=== PATIENT | male | born 1955 | race Caucasian/White ===

== ENCOUNTER 2017-06-20 06:52 | Day surgery (SDC) | payer BC, OTHER ==
[2017-06-20] MEDS: NS 1,000 ML IV (07:00)
[2017-06-20] MEDS ORDERED: PROPOFOL 200 MG/20 ML VIAL As Ordered ×3 (07:38→07:40)
== END 2017-06-20 08:10 | disposition home or self-care (01) ==
LOC: M OPP 06:52
DX: Z12.11 Encounter for screening for malignant neoplasm of colon (principal); Z86.010 Personal history of colon polyps; D12.5 Benign neoplasm of sigmoid colon; D12.3 Benign neoplasm of transverse colon; R06.83 Snoring; M54.9 Dorsalgia, unspecified
CPT/HCPCS: 45385

== ENCOUNTER 2018-06-10 08:27 | Day surgery (SDC) | payer BC, OTHER ==
[~2018-06-10] VITALS: Ht 188 cm; Wt 106.6 kg
[~2018-06-10 08:27] MED LIST: LR 1,000 ML IV ONE; [UNRECOGNIZED DRUG - REMARK]; ceFAZolin SOD 1 GM in D5W MINI-BAG PLUS 50 ML IV ONE
[2018-06-10 09:04] LABS: HEMATOCRIT 47.4 % (42.0-52.0); HEMOGLOBIN 16.1 g/dl (13.5-17.5); MEAN CORPUSCULAR HEMOGLOBIN 29.8 pg (27.0-33.0); MEAN CORPUSCULAR VOLUME 87.8 fl (80.0-96.0); PLATELET COUNT, AUTOMATED 242 10^3/uL (150-450); WHITE BLOOD COUNT 4.5 10^3/uL (4.0-10.0)
[2018-06-10] MEDS ORDERED: MIDAZOLAM INJ 2 MG/2 ML VIAL (J2250) As Ordered ONE (09:06)
[2018-06-10] MEDS ORDERED: ONDANSETRON 4MG/2ML VIAL (J2405) As Ordered ONE (09:07)
[2018-06-10] MEDS ORDERED: PROPOFOL 200 MG/20 ML VIAL As Ordered ONE ×2 (09:07→11:10)
[2018-06-10] MEDS ORDERED: fentaNYL 100 MCG/2 ML INJECTION (J3010) As Ordered ONE ×2 (09:07→10:37)
[2018-06-10] MEDS ORDERED: dexameTHASONE 4 MG/ML 1ML VIAL (J1100) As Ordered ONE (09:07)
[2018-06-10] MEDS ORDERED: LIDOCAINE 2% INJ 100 MG/5 ML SDV (FOR ANES.) As Ordered ONE (09:07)
[2018-06-10] MEDS ORDERED: ROCURONIUM BROMIDE 50 MG/5 ML VIAL As Ordered ONE (09:07)
[2018-06-10] MEDS ORDERED: BUPIVACAINE/EPIN 0.25% 30 ML VIAL As Ordered ONE (09:22)
[2018-06-10 09:23] LABS: BLOOD UREA NITROGEN 21 MG/DL (7-18); CALCIUM LEVEL 8.6 MG/DL (8.8-10.2); CARBON DIOXIDE LEVEL 24 MEQ/L (21-32); CHLORIDE LEVEL 109 MEQ/L (98-107); CREATININE FOR GFR 0.92 MG/DL (0.70-1.30); GLOMERULAR FILTRATION RATE > 60.0 (>49); GLUCOSE, FASTING 100 MG/DL (70-100); POTASSIUM SERUM 4.1 MEQ/L (3.5-5.1); SODIUM LEVEL 140 MEQ/L (136-145)
[2018-06-10] MEDS ORDERED: KETOROLAC 60 MG/2 ML VIAL (J1885) As Ordered ONE (10:47)
[2018-06-10] MEDS ORDERED: ONDANSETRON 4MG/2ML VIAL (J2405) IV PRN ×2 (12:00→12:15)
[2018-06-10] MEDS ORDERED: MEPERIDINE INJ 25 MG/ML VIAL (J2175) IV PRN (12:00)
[2018-06-10] MEDS ORDERED: NORCO, ANEXSIA 5/325MG TABLET (HYDROcodone/ACETAMINOPHEN) PO PRN (12:00)
[2018-06-10] MEDS ORDERED: METOCLOPRAMIDE INJ 10MG/2ML VIAL (J2765) IV PRN (12:00)
[2018-06-10] MEDS ORDERED: PERCOCET 5MG/325MG TAB PO PRN (12:00)
[2018-06-10] MEDS ORDERED: LR 1,000 ML IV SCH ×2 (12:00)
[2018-06-10] MEDS ORDERED: fentaNYL 100 MCG/2 ML INJECTION (J3010) IV PRN (12:00)
[2018-06-10] MEDS ORDERED: MORPHINE 4 MG/ML 1ML VIAL/SYRINGE (J2270) IV PRN (12:15)
--- NOTE | 2018-06-10 12:35 | RO ---
DATE OF PROCEDURE: 06/10/2018 PREOPERATIVE DIAGNOSIS: Recurrent left inguinal hernia. POSTOPERATIVE DIAGNOSES: Recurrent left inguinal hernia (lipoma of the cord). PROCEDURE: Left inguinal hernia repair with ULTRAPRO mesh. SURGEON: Manjit Bailey MD SANITARY CHEMIST: ANESTHESIA: General endotracheal anesthesia. ESTIMATED BLOOD LOSS (EBL): Was minimal. FLUIDS: Crystalloid. DESCRIPTION OF PROCEDURE: Brief procedure summary: The patient was brought to the operating room was given general anesthesia. After adequate anesthesia and preoperative antibiotics were given, the patient was prepped and draped in the usual sterile fashion. Then, a left inguinal incision was made with skin knife. Blunt dissection was carried down to fascia, external oblique fascia. Fascia was opened along its length, and the ilioinguinal nerve was seen and preserved and left with the cord structures during the dissection. In any case, a Meek drain was placed around the cord structures, and then using this to mobilize further the tissue and the floor of the canal was established to be intact, and where the defect was, was at the internal ring. However, there was lipoma of the cord, and I did not appreciate any evidence of peritoneum in this area. There were two lipomas of the cord, relatively good size, that were removed from this inguinal canal, transected at the base. Next, given the relatively patulous opening in this area, I used some #2-0 Vicryl to imbricate the transversalis fascia in this area and the floor of the canal to close the internal ring. Next, ULTRAPRO mesh was cut to the appropriate size, sutured in with PDS at the lateral border of pubis along the inguinal ligament on the left hand side, lateral side with #2-0 PDS, and Securestrap on the medial side. The tails of the mesh were brought together with #2-0 Vicryl, and after this provided adequate sizing of the internal ring. The external oblique was closed over the top of the mesh, and #2-0 Vicryl was used close Marcus layer, #3-0 Vicryl was used to approximate the dermis, #4-0 Vicryl was used to approximate the skin. Steri-Strips and dry sterile dressing was applied. Patient was awakened from his anesthesia, extubated, brought to recovery room awake, alert, and hemodynamically stable. Sponge and needle counts correct times two.
[2018-06-10 14:10] VITALS: BP 127/81
== END 2018-06-10 14:20 | disposition home or self-care (01) ==
LOC: M SDC 08:27
PROVIDERS: ATTEND Surgery
DX: K40.91 Unilateral inguinal hernia, without obstruction or gangrene, recurrent (principal); R06.83 Snoring; Z86.010 Personal history of colon polyps
CPT/HCPCS: 36415; 49520; 80048; 85027; 88302; C1781; J0690; J1100; J1885; J2250; J2405; J3010

== ENCOUNTER 2018-09-21 22:29 | Emergency (ER) | payer BC, OTHER ==
[~2018-09-21] VITALS: Ht 188 cm; Wt 106.8 kg
[~2018-09-21 22:29] MED LIST changes: -LR 1,000 ML IV ONE; -ceFAZolin SOD 1 GM in D5W MINI-BAG PLUS 50 ML IV ONE
[2018-09-21 23:13] LABS: EOS # 0.1 10^3/uL (0.0-0.50); EOS % 3.4 % (0.0-3.0); HEMOGLOBIN 14.9 g/dl (13.5-17.5); LYMPH # 1.5 10^3/uL (1.5-4.5); LYMPH % 37.7 % (24.0-44.0); MEAN CORPUSCULAR HEMOGLOBIN 30.8 pg (27.0-33.0); MEAN CORPUSCULAR HGB CONC 34.7 g/dl (32.0-36.5); MEAN CORPUSCULAR VOLUME 88.8 fl (80.0-96.0); MONO # 0.5 10^3/uL (0.0-0.8); MONO % 11.5 % (0.0-5.0); NEUTROPHILS # 1.9 10^3/uL (1.8-7.7); NEUTROPHILS % 46.2 % (36.0-66.0); PLATELET COUNT, AUTOMATED 195 10^3/uL (150-450); RED BLOOD COUNT 4.84 10^6/uL (4.30-6.10); WHITE BLOOD COUNT 4.1 10^3/uL (4.0-10.0)
[2018-09-21 23:15] VITALS: BP 150/80
[2018-09-21] MEDS ORDERED: NITROGLYCERIN 2% OINT 1 GM *U/D* PKT TOP ONE (23:15)
[2018-09-21] MEDS ORDERED: ASPIRIN 325 MG TAB PO ONE (23:15)
[2018-09-21 23:23] LABS: INR 0.9; PROTHROMBIN TIME 12.2 SECONDS (12.1-14.4)
[2018-09-21 23:24] LABS: PARTIAL THROMBOPLASTIN TIME 27.7 SECONDS (25.4-37.6)
[2018-09-21 23:37] LABS: BLOOD UREA NITROGEN 16 MG/DL (7-18); CALCIUM LEVEL 8.7 MG/DL (8.8-10.2); CARBON DIOXIDE LEVEL 25 MEQ/L (21-32); CHLORIDE LEVEL 110 MEQ/L (98-107); CK-MB VALUE MASS 3.7 NG/ML (<3.6); CPK CREATINE PHOSPHOKINASE 301 U/L (39-308); CREATININE FOR GFR 0.98 MG/DL (0.70-1.30); GLOMERULAR FILTRATION RATE > 60.0 (>49); GLUCOSE, FASTING 149 MG/DL (70-100); MB/CK RELATIVE INDEX 1.23 (< OR =4); POTASSIUM SERUM 3.8 MEQ/L (3.5-5.1); SODIUM LEVEL 143 MEQ/L (136-145); TROPONIN I < 0.02 NG/ML (< 0.10)
[2018-09-22] MEDS ORDERED: KETOROLAC 30 MG/ML VIAL (J1885) IV ONE (00:15)
[2018-09-22 02:41] LABS: CK-MB VALUE MASS 3.4 NG/ML (<3.6); CPK CREATINE PHOSPHOKINASE 249 U/L (39-308); MB/CK RELATIVE INDEX 1.37 (< OR =4); TROPONIN I < 0.02 NG/ML (< 0.10)
[2018-09-22] MEDS ORDERED: ISOVUE-370 76% 100ML VIAL (Q9967) As Ordered ONE (02:54)
[2018-09-22] MEDS ORDERED: NS 500 ML IV ONE (03:00)
--- NOTE | 2018-09-22 04:16 | REPVR ---
EXAM: CT Angiography Chest With Contrast EXAM DATE/TIME: 09/22/2018 3:00 AM CLINICAL HISTORY: 62 years old, male; Chest pain; Type not specified; Additional info: Cp TECHNIQUE: Imaging protocol: Axial computed tomographic angiography images of the chest with intravenous contrast using CT angiography protocol. Coronal and sagittal reformatted images were created and reviewed. 3D rendering: MIP reconstructed images were created and reviewed. Radiation optimization: All CT scans at this facility use at least one of these dose optimization techniques: automated exposure control; mA and/or kV adjustment per patient size (includes targeted exams where dose is matched to clinical indication); or iterative reconstruction. Contrast material: ISOVUE 370; Contrast volume: 75 ml; Contrast route: IV; COMPARISON: CR Chest, 1 view 09/21/2018 11:14 PM FINDINGS: Pulmonary arteries: The main pulmonary artery measures 35 mm. No pulmonary embolism is identified. Aorta: The ascending thoracic aorta measures 38 mm. Other arteries: The left vertebral artery originates directly from the arch. Lungs: Mild right lower lobe fibro-atelectatic change adjacent to the elevated hemidiaphragm. There is minimal left lower lobe fibro-atelectatic change. Pleural space: Unremarkable. No pneumothorax. No pleural effusion. Heart: Unremarkable. No cardiomegaly. No pericardial effusion. Diaphragm: Elevation of the right hemidiaphragm. Gallbladder and bile ducts: Faint gallstones in the gallbladder which is somewhat contracted. Lymph nodes: Unremarkable. No enlarged lymph nodes. Bones/joints: Unremarkable. No acute fracture. Soft tissues: Unremarkable. IMPRESSION: 1. Elevation of the right hemidiaphragm with mild fibro-atelectatic change in the adjacent right lower lobe. There is minimal fibro-atelectatic change in the left lower lobe. 2. Faint gallstones in the gallbladder. 3. Otherwise negative CTA chest. No pulmonary embolism is identified. Electronically signed by: Raúl Kaiser On 09/22/2018 04:15:45 AM
[2018-09-22] MEDS ORDERED: KETO10TAB PO (04:45)
[2018-09-22 04:51] VITALS: BP 120/75
--- NOTE | 2018-09-22 07:11 | ECGEPIP ---
[facility] - ED Test Date: 2018-09-21 Pat Name: JOHNNY CUETO Department: Room: - Gender: Male Respiratory Care Practitioner: VIKKI : 1955 Requested By: TERRY JOSHI Order Number: [id number] Reading MD: Sy Cordero Measurements Intervals [place] Rate: 76 P: 46 [place]: 163 QRS: QRSD: 108 T: 13 QT: 405 QTc: 457 Interpretive Statements SINUS RHYTHM PROBABLE LATERAL MYOCARDIAL INFARCTION, PROBABLY OLD NO PRIORS FOR COMPARISON Electronically Signed on 09-22-2018 7:11:03 EDT by Sy Cordero
--- NOTE | 2018-09-22 07:13 | ECGEPIP ---
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
--- NOTE | 2018-09-22 08:36 | REP ---
CHEST, SINGLE VIEW: Single view of the chest is performed. There is moderate elevation of the right hemidiaphragm with mild right basilar atelectatic change. No acute infiltrate is seen. Heart is not enlarged. Mediastinal silhouette is unremarkable. IMPRESSION: Moderate elevation of the right hemidiaphragm with mild right base atelectatic change. No acute infiltrate. Electronically Signed by Shaan Blas MD 09/23/2018 10:03 A
== END 2018-09-22 05:11 | disposition home or self-care (01) ==
LOC: M ED 22:29
DX: R07.89 Other chest pain (principal); K80.20 Calculus of gallbladder without cholecystitis without obstruction
CPT/HCPCS: 36415; 71045; 71275; 80048; 82550; 82553; 84484; 85025; 85610; 85730; 93005; 93041; 94760; 96361; 96374; 99285; J1885; Q9967

== ENCOUNTER → 2018-11-11 | Outpatient (CLI) | payer BC, OTHER ==
[~2018-11-11] MED LIST changes: +KETO10TAB PO
--- NOTE | 2018-11-11 15:10 | REP ---
Clinical: Hydrocele. Technique: Real time pearce scale and color Doppler evaluation using linear high frequency transducer. Comparison: None. Findings: Right testicle measures 4.5 x 2.3 x 2.7 cm and appears normal. Moderate complex right hydrocele likely chronic. Right-sided varicoceles are identified measuring up to approximately 3 mm diameter. Right epididymal cyst is also appreciated measuring 7.7 x 7.1 x 8.7 mm. Left testicle measures 4.3 x 2.4 x 2.8 cm and appears normal moderate complex left hydrocele likely chronic. No significant left-sided varicoceles are appreciated. Left epididymis appears relatively normal. There is a large echogenic mass identified posterolateral to the left florentin scrotum which measures approximately 9.2 x 3.7 x 6.1 cm and is most consistent with herniating fat. Impression: 1. Normal appearance and vascularity to the bilateral testicles. 2. Somewhat complex chronic-appearing moderate bilateral hydroceles noted along with a 0.7 mm right epididymal cyst and multiple right-sided varicoceles up to 3 mm. 3. Large focus of herniating fat extends into the posterolateral aspect of the left hemiscrotum. Electronically Signed by Ken Landaverde MD 11/11/2018 03:01 P
== END ==
LOC: M RAD 13:08
PROVIDERS: ATTEND Surgery
DX: N43.3 Hydrocele, unspecified (principal)

== ENCOUNTER → 2018-12-23 | Outpatient (REF) | payer BC, OTHER | LOC: M LAB REF 12:48 | PROVIDERS: ATTEND Physician Assistant | DX: J02.9 Acute pharyngitis, unspecified (principal) ==

== ENCOUNTER → 2020-06-02 | Outpatient (CLI) | payer MEDICARE, OTHER, BC ==
[~2020-06-02] MED LIST changes: +BAYE81TA10 PO; +SILD100T PO
== END ==
LOC: M LABSMTC 11:18
PROVIDERS: ATTEND Anesthesiology
DX: Z01.812 Encounter for preprocedural laboratory examination (principal); Z20.822 Contact with and (suspected) exposure to COVID-19

== ENCOUNTER → 2020-06-02 | Outpatient (CLI) | payer MEDICARE, BC, OTHER ==
--- NOTE | 2020-06-02 16:06 | ECGEPIP ---
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
== END ==
LOC: M EKG 09:41
PROVIDERS: ATTEND Anesthesiology
DX: Z01.818 Encounter for other preprocedural examination (principal); K63.5 Polyp of colon

== ENCOUNTER 2020-06-07 07:29 | Day surgery (SDC) | payer MEDICARE, BC, OTHER ==
[~2020-06-07] VITALS: Ht 188 cm; Wt 99.8 kg
[~2020-06-07 07:29] MED LIST changes: +LR 1,000 ML IV ONE; +ceFAZolin SOD 1 GM in D5W MINI-BAG PLUS 50 ML IV ONE
--- OUTSIDE RECORDS SUMMARY | 2020-06-07 07:32 | CCD | Continuity of Care Document ---
Author Author Chi BAILEY MD Organization Unknown Address [address] [address] Phone [phone] Care Team Providers Care Underwriting Consultant Name Role Phone AUTM Unavailable Problems Active Problems Provider Date Screening for malignant neoplasm of colon Karlos Andre MD Onset: 06/20/2017 Benign neoplasm of colon Karlos Andre MD Onset: 06/21/19 18 History of polyp of colon Karlos Andre MD Onset: 018 Social History Type Date Description Comments Sex Unknown ETOH Use 2-3 A Week Tobacco Use Start: Unknown Patient has never smoked Recreational Drug Use Denies Drug Use Allergies, Adverse Reactions, Alerts Description No Known Drug Allergies Medications Active Medications SIG Qnty Indications Ordering Provide r Date Aspirin [address] take 1 tab by mouth daily Unknown Immunizations Description No Information Available Vital Signs Date Vital Result Comment 04/06/2020 11:19am BP Systolic 131 mmHg BP Diastolic 78 mmHg Heart Rate 64 /min Height 74 inches 6'2" Weight 228.50 lb BMI (Body Mass Index) 29.3 kg/m2 [place] Body Weight 190 lb Weight 103.648 kg BSA (Body Surface Area) 2.30 m2 02/16/2019 8:48am BP Systolic 118 mmHg BP Diastolic 74 mmHg Heart Rate 76 /min Height 74 inches 6'2" Weight 238.00 lb BMI (Body Mass Index) 30.6 kg/m2 [place] Body Weight 190 lb Weight 107.957 kg BSA (Body Surface Area) 2.34 m2 Results Description No Information Available Procedures Description No Information Available Medical Devices Description No Information Available Encounters Description No Information Available Assessments Description No Information Available Plan of Treatment 02/16/2019 - Manjit Bailey JR, MD* N43.3 Hydrocele, unspecified* Comments:* At this point we have discussed multiple options with him at exploration aspirat ion here in the office or obtaining a second opinion and I do feel that having the urologist take a look at him and make some recommendations concerning additional treatment may be very reasonable if they would like to proceed with a needle aspirate of this to see if this makes at least some temporary relief and provide at least a diagnostic impression of whether this is going to make a difference for him it may be the next step and the patient understands and will discuss this further with the urologist however each time I discuss the issue and discomfort the patient has he is extremely vague at describing it and states that it doesn't bother him except at night when he turns over and otherwise has no other specific complaints and for a recurrent inguinal hernia I think his expectations may be a little bit higher concerning resolution of discomfort/normalization. I would not be surprised whatsoever if this is related to the mesh attached to the external oblique muscles and when he turns in bed possibly pulls on the mesh and causes some mild discomfort in this area. Once again it's hard to determine with him just because it's somewhat vague his description of this abnormality. In any case I would like the urologist to see him and make some recommendations possibly do a diagnostic aspiration or if need be to explore this scrotum on that side Functional Status Description No Information Available Mental Status Description No Information Available Referrals Description No Information Available
--- OUTSIDE RECORDS SUMMARY | 2020-06-07 07:32 | CCD | Continuity of Care Document ---
Author Author Chi CLAUDIO M.D. Organization Unknown Address [address] [facility], [address] [place] [address] Phone [phone] Care Team Providers Care Relationship Specialist Name Role Phone AUTM Unavailable Problems Active [...] Available Vital Signs Date Vital Result Comment 04/20/2020 9:58am BP Systolic 116 mmHg BP Diastolic 78 mmHg Height 74 inches 6'2" Weight 228.12 lb BMI (Body Mass Index) 29.3 kg/m2 [place] Body Weight 190 lb Weight 103.478 kg BSA (Body Surface Area) 2.30 m2 04/06/2020 11:19am BP Systolic 131 mmHg BP Diastolic 78 mmHg Heart Rate 64 /min Height 74 inches 6'2" Weight 228.50 lb BMI (Body Mass Index) 29.3 kg/m2 [place] Body Weight 190 lb Weight 103.648 kg BSA (Body Surface Area) 2.30 m2 Results Description No Information Available Procedures [...]
--- OUTSIDE RECORDS SUMMARY | 2020-06-07 07:32 | CCD | Continuity of Care Document ---
Author Author Chi KAISER M.D. Organization Unknown Address [address] [address] Phone [phone] Care Team Providers Care Spooling Operator Name Role Phone Jose Valentine Guerline AUTM [phone] Problems Active Problems Provider Date Mixed hyperlipidemia Mc Kaiser M.D. Onset: 01/29/20 13 Benign neoplasm of colon Mc Kaiser M.D. Onset: 01/13 Social History Type Date Description Comments Sex Unknown ETOH Use Consumes 1-2 beers per week Tobacco Use Start: Unknown Patient has never smoked Recreational Drug Use Denies Drug Use Allergies, Adverse Reactions, Alerts Active Allergies Reaction Severity Comments Date No Known Drug Allergy 2012 Medications Active Medications SIG Qnty Indications Ordering Provide r Date Viagra 100mg Tablets 1 by mouth every day as needed 6tabs Mc Kaiser M.D. 03/25/20 20 Shingrix 50mcg/0.5ML Suspension Re c as directed 1units Mc Kaiser M.D. 09/21/19 20 Prevnar 13 Suspension as directed 1dose Mc Kaiser M.D. 09/21/[address] 1 by mouth every day OTC Unknown Immunizations CPT Code Status Date Vaccine Lot # 12981 Given 03/20/2019 Influenza Virus Vaccine, Quadrivalent, Slit Virus, Im Use 3Y & Up [id number] 46140 Given 03/19/2018 Influenza Virus Vaccine, Quadrivalent, Slit Virus, Im Use 3Y & Up [id number] 47218 Given 03/18/2017 Influenza Virus Vaccine, Quadrivalent, Slit Virus, Im Use 3Y & Up [id number] Vital Signs Date Vital Result Comment 03/25/2020 9:37am BP Systolic 116 mmHg BP Diastolic 74 mmHg Body Temperature 97.4 F Heart Rate 60 /min Respiratory Rate 12 /min Height 73 inches 6'1" Weight 227.00 lb [place] Body Weight 184 lb BMI (Body Mass Index) 29.9 kg/m2 O2 % BldC Oximetry 95 % 09/21/2019 8:55am BP Systolic 124 mmHg BP Diastolic 78 mmHg Body Temperature 97.4 F Heart Rate 62 /min Respiratory Rate 14 /min Height 73 inches 6'1" Weight 221.00 lb [place] Body Weight 184 lb BMI (Body Mass Index) 29.2 kg/m2 O2 % BldC Oximetry 95 % Results Description No Information Available Procedures Description No Information Available Medical Devices Description No Information Available Encounters Type Date Location Provider Dx Diagnosis Office Visit 03/25/2020 9:30a [place] [facility] Mc Kaiser M. D. Z00.00 Encntr for general adult medical exam w/o abnormal findings R73.01 Impaired fasting glucose E78.2 Mixed hyperlipidemia Assessments Date Code Description Provider 03/25/2020 Z00.00 Encounter for general adult medi juli examination without abno Mc Kaiser M.D. 03/25/2020 R73.01 Impaired fasting glucose Mc Mata M.D. 03/25/2020 E78.2 Mixed hyperlipidemia Frances Kaiser M.D. Plan of Treatment No Information Available Functional Status Description No Information Available Mental Status Description No Information Available Referrals Refer to Dr Reason for Referral Status Appt Date Manjit Bailey M.D. recurrence of fluid collecti on at hernia repair site- bothersome to pt. -eval and rx Created [address] [place] [address], [address] [place] [address] [phone]
--- OUTSIDE RECORDS SUMMARY | 2020-06-07 07:32 | CCD | Continuity of Care Document ---
Author Author Chi KAISER M.D. Organization Unknown Address [address] [address] Phone [phone] Care Team Providers Care Pyridine Operator Name Role Phone Jose Valentine Guerline AUTM [phone] Problems Active Problems Provider Date Mixed hyperlipidemia [...] CPT Code Status Date Vaccine Lot # [id number] Given 03/25/2020 Pneumococcal Immunization T0 [id number] 05126 Given 03/20/2019 Influenza Virus Vaccine, Quadrivalent, Slit Virus, Im Use 3Y & Up [id number] 17558 Given 03/19/2018 Influenza Virus Vaccine, Quadrivalent, Slit Virus, Im Use 3Y & Up [id number] 41179 Given 03/18/2017 Influenza Virus Vaccine, Quadrivalent, Slit Virus, Im Use 3Y & Up [id number] Vital Signs Date Vital Result Comment 03/25/2020 9:37am BP Systolic 116 mmHg BP Diastolic 74 mmHg Body Temperature 97.4 F Heart Rate 60 /min Respiratory Rate 12 /min Height 73 inches 6'1" Weight 227.00 lb [place] Body Weight 184 lb BMI (Body Mass Index) 29.9 kg/m2 O2 % BldC Oximetry 95 % 09/21/2019 8:55am BP Systolic 124 mmHg BP Diastolic 78 mmHg Body Temperature 97.4 F Heart Rate 62 /min Respiratory Rate 14 /min Height 73 inches 6'1" Weight 221.00 lb [place] Body Weight 184 lb BMI (Body Mass Index) 29.2 kg/m2 O2 % BldC Oximetry 95 % Results Test Acquired Date Facility Test Result H/L Range Note CMP 03/25/2020 [facility] Glu 105 mg/dL 70 - 110 1 BUN 17 mg/dL 8 - 23 Creat 0.9 mg/dL 0.7 - 1.2 BUN/Creatinine Ratio 18.6 CALC Na 139 mmol/L 136 - 145 K 4.4 mmol/L 3.5 - 5.1 CL 104.3 mmol/L 98.0 - 107.0 Co2 22.0 mmol/L 22.0 - 29.0 CA 9.2 mg/dL 8.6 - 10.2 TP 6.4 g/dL Low 6.6 - 8.7 Alb 4.5 g/dL 3.5 - 5.2 A/G Ratio 2.3 CALC Globulin 1.9 CALC Alp 54.3 U/L 40 - 129 Alt (SGPT) 26 U/L 0 - 41 Ast (Sgot) 20 U/L 0 - 40 Tbili 0.52 mg/dL 0.0 - 1.2 Osmolality-Calculated 279.6 CALC Anion Gap 17 mmol/L eGFR 104 # Calc 2 eGFR Non-Afr. [place] 89 # Calc 3 Lipid Panel 03/25/2020 [facility] Chol 206 mg/dL High 0 - 200 Trig 100 mg/dL 35 - 200 HDL 45 mg/dL 35 - 55 LDL_C 141 Calc High 75 - 129 Cho/HDL Ratio 4.5 Calc 1 CHRONIC KIDNEY DISEASE STAGI NG PER NKF: MALE GFR INTERPRETATION: 20-49 YRS: >60 mL/min Normal 50-59 YRS: >56 mL/min Normal 60-69 YRS: >49 mL/min Normal 70-79 YRS: >42 mL/min Normal 80 and above >35 mL/min Normal FEMALE GRF INTERPRETATION: 20-39 YRS: >60 mL/min Normal 40-49 YRS: >58 mL/min Normal 50-59 YRS: >51 mL/min Normal 60-69 YRS: >45 mL/min Normal 70-79 YRS: >39 mL/min Normal 80 and above >32 mL/min NormalCLASSIFICATION CHOLESTEROL FOR ADULTS CHILDREN/ADOLESCENTS* DESIRABLE: <200 MG/DL <170 MG/DL BORDER-LINE HIGH RISK: 200-239 MG/DL 170-199 MG/DL HIGH RISK: >240 MG/DL >200 MG/DL CLASS. FOR PRIMARY LDL CHOL PREVENTION: LDL CHOL-CHILD/ADOLESCENTS* DESIRABLE: <130 MG/DL <110 MG/DL BORDERLINE-HIGH RISK: 130-159 MG/DL 110-129 MG/DL HIGH RISK: >160 MG/DL >130 MG/DL *CHILDREN AND ADOLESCENTS REPRESENTS INDIVIDUALA AGED 2-19 YEARS EXCLUSIVE. 2 CKD-EPI 3 CKD-EPI Procedures Description No Information Available Medical Devices Description No Information Available Encounters Type Date Location Provider Dx Diagnosis Office Visit 03/25/2020 9:30a [place] [facility] Mc Kaiser M. D. Z00.00 Encntr [...] Description No Information Available Referrals Refer to Reason for Referral Status Appt Date Manjit Bailey M.D. recurrence of fluid collecti on at hernia repair site- bothersome to pt. -eval and rx Created [address] [facility], [address] [place] [address] [phone]
--- OUTSIDE RECORDS SUMMARY | 2020-06-07 07:32 | CCD | Continuity of Care Document ---
Author Author Chi BAILEY MD Organization Unknown Address [address] [address] Phone [phone] Care Team Providers Care Rating Clerk Name Role Phone AUTM Unavailable Problems Active [...] Available Vital Signs Date Vital Result Comment 05/04/2020 10:05am BP Systolic 117 mmHg BP Diastolic 71 mmHg Heart Rate 65 /min Height 74 inches 6'2" Weight 228.00 lb BMI (Body Mass Index) 29.3 kg/m2 [place] Body Weight 190 lb Weight 103.421 kg BSA (Body Surface Area) 2.30 m2 04/20/2020 9:58am BP Systolic 116 mmHg BP Diastolic 78 mmHg Height 74 inches 6'2" Weight 228.12 lb BMI (Body Mass Index) 29.3 kg/m2 [place] Body Weight 190 lb Weight 103.478 kg BSA (Body Surface Area) 2.30 m2 Results Description No Information Available Procedures Description No Information Available Medical Devices Description No Information Available Encounters Type Date Location Provider Dx Diagnosis Office Visit 04/06/2020 11:10a [facility] Manjit gr JR, MD N43.3 Hydrocele, unspecified K40.90 Unil inguinal hernia, w/o ob st or gangr, not spcf as recur Assessments Date Code Description Provider 04/06/2020 N43.3 Hydrocele, unspecified Manjit gr JR, MD 04/06/2020 K40.90 Unilateral inguinal hernia, with out obstruction or gangrene, Manjit Bailey JR, MD Plan of Treatment 04/06/2020 - Manjit Bailey JR, MD* N43.3 Hydrocele, unspecified* Comments:* Patient does have some fluid in the left groin although this seems to be a smaller component to it and wondering if this is the component that is giving him the discomfort incidental lipomatous tissue both of which are really not tender on exam the and don't cause any problems on exam. After discussion with him I'm having difficulty understanding if this is really bothering him from the standpoint of discomfort or if this is more of a bothersome that it is present. In any case would like to have him evaluated by one of my colleagues Dr. Spear and see if he has some further insight into this recommendations for this. * K40.90 Unilateral inguinal hernia, without obstruction or gangrene,* Comments: * No evidence of recurrence of his hernia and there is some lipomatous tissue in this area obviously options for both are excision of the lipomatous tissue observation given that he's not having significant problems with this this is also a very reasonable option. And follow-up in 3-6 months would be warranted or at least reasonable. Obviously possible aspiration of the fluid in the left testicular area would be not an unreasonable option for him last time they felt that there was not a significant amount that would require drainage a small amount of drainage might give him some of the relief that he is seeking for this discomfort that is bothering him at night. Given the above I've discussed options with him and we'll send him for a second opinion with one of my colleagues Dr. Spear. Functional Status Description No Information Available Mental Status Description No Information Available Referrals Description No Information Available
--- OUTSIDE RECORDS SUMMARY | 2020-06-07 07:32 | CCD | Continuity of Care Document ---
Author Author Chi [facility] M.D. Organization Unknown Address [address] [address] Phone [phone] Care Team Providers Care Hang Gliding Instructor Name Role Phone Jose Valentine Guerline AUTM [phone] Problems Active Problems Provider Date Mixed hyperlipidemia [...] CPT Code Status Date Vaccine Lot # [id number] Given 03/25/2020 Pneumococcal Immunization T0 [id number] Given 03/20/2019 Influenza Virus Vaccine, Quadrivalent, Slit Virus, Im Use 3Y & Up [id number] 93515 Given 03/19/2018 Influenza Virus Vaccine, Quadrivalent, Slit Virus, Im Use 3Y & Up [id number] Given 03/18/2017 Influenza Virus Vaccine, Quadrivalent, Slit Virus, Im Use 3Y & Up [id number] Vital Signs Date Vital Result Comment 03/25/2020 9:37am BP Systolic 116 mmHg BP Diastolic 74 mmHg Body Temperature 97.4 F Heart Rate 60 /min Respiratory Rate 12 /min Height 73 inches 6'1" Weight 227.00 lb [place] Body Weight 184 lb BMI (Body Mass Index) 29.9 kg/m2 O2 % BldC Oximetry 95 % 09/21/2019 8:55am BP Systolic 124 mmHg BP Diastolic 78 mmHg Body Temperature 97.4 F Heart Rate 62 /min Respiratory Rate 14 /min Height 73 inches 6'1" Weight 221.00 lb [place] Body Weight 184 lb BMI (Body Mass [...] eGFR 104 # Calc 2 eGFR Non-Afr. [place] 89 # Calc 3 Lipid Panel 03/25/2020 [...] Provider Dx Diagnosis Office Visit 03/25/2020 9:30a [place] [facility] Mc Kaiser M. D. Z00.00 Encntr for general adult medical exam w/o abnormal findings R73.01 Impaired fasting glucose E78.2 Mixed hyperlipidemia Z23 Encounter for immunization Assessments Date Code Description Provider 03/25/2020 Z00.00 Encounter for general adult medi juli examination without abno Mc Kaiser M.D. 03/25/2020 R73.01 Impaired fasting glucose Mc Mata M.D. 03/25/2020 E78.2 Mixed hyperlipidemia Frances Kaiser M.D. 03/25/2020 Z23 Encounter for immunization Mc Rosas M.D. Plan of Treatment No Information Available Functional Status Description No Information Available Mental Status Description No Information Available Referrals Refer to Reason for Referral Status Appt Date Manjit Bailey M.D. recurrence of fluid collecti on at hernia repair site- bothersome to pt. -eval and rx Sent [address] [facility], [address] [place] [address] [phone]
--- OUTSIDE RECORDS SUMMARY | 2020-06-07 07:33 | CCD ---
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 Tender Name Role Phone Marion Bailey JR, MD Unavailable Unavailable Marion Bailey JR, MD Unavailable Unavailable Marion Bailey JR, MD Unavailable Unavailable Marion Bailey JR, MD Unavailable Unavailable Marion Bailey JR, MD Unavailable Unavailable Marion Bailey JR, MD Unavailable Unavailable Marion Bailey JR, MD Unavailable Unavailable Marion Bailey JR, MD Unavailable Unavailable Marion Bailey JR, MD Unavailable Unavailable Marion Bailey JR, MD Unavailable Unavailable Marion Bailey JR, MD Unavailable Unavailable Marion Bailey JR, MD Unavailable Unavailable Marion Bailey JR, MD Unavailable Unavailable Marion Bailey JR, MD Unavailable Unavailable Marion Bailey JR, MD Unavailable Unavailable Marion Bailey JR, MD Unavailable Unavailable Marion Bailey JR, MD Unavailable Unavailable Marion Bailey JR, MD Unavailable Unavailable Marion Bailey JR, MD Unavailable Unavailable Marion Bailey JR, MD Unavailable Unavailable Marion Bailey JR, MD Unavailable Unavailable Marion Bailey JR, MD Unavailable Unavailable Marion Bailey JR, MD Unavailable Unavailable Marion Bailey JR, MD Unavailable Unavailable Marion Bailey JR, MD Unavailable Unavailable Marion Bailey JR, MD Unavailable Unavailable Marion Bailey JR, MD Unavailable Unavailable Marion Bailey JR, MD Unavailable Unavailable Marion Bailey JR, MD Unavailable Unavailable Leo CISNEROS J Manjit BRAR Unavailable Unavailable Leo CISNEROS J Manjit BRAR Unavailable Unavailable Leo CISNEROS J Manjit BRAR Unavailable Unavailable Leo CISNEROS J Manjit BRAR Unavailable Unavailable Leo CISNEROS J Manjit BRAR Unavailable Unavailable Leo CISNEROS, J Manjit BRAR Unavailable Unavailable Leo JR, J Manjit BRAR Unavailable Unavailable Leo CISNEROS, J Manjit BRAR Unavailable Unavailable Leo CISNEROS, J Manjit BRAR Unavailable Unavailable Leo JR, J Manjit BRAR Unavailable Unavailable Leo JR, J Manjit BRAR Unavailable Unavailable Leo JR, J Manjit BRAR Unavailable Unavailable Leo JR, J Manjit BRAR Unavailable Unavailable Leo JR, J Manjit BRAR Unavailable Unavailable Leo JR, J Manjit BRAR Unavailable Unavailable Leo CISNEROS, J Manjit BRAR Unavailable Unavailable Leo CISNEROS J Manjit BRAR Unavailable Unavailable Leo CISNEROS J Manjit BRAR Unavailable Unavailable Leo CISNEROS J Manjit BRAR Unavailable Unavailable Leo CISNEROS J Manjit BRAR Unavailable Unavailable Leo CISNEROS J Manjit BRAR Unavailable Unavailable Leo CISNEROS J Manjit BRAR Unavailable Unavailable Leo CISNEROS J Manjit BRAR Unavailable Unavailable Leo CISNEROS J Manjit BRAR Unavailable Unavailable Leo CISNEROS J Manjit BRAR Unavailable Unavailable Leo CISNEROS J Manjit BRAR Unavailable Unavailable Leo CISNEROS J Manjit BRAR Unavailable Unavailable Leo CISNEROS J Manjit BRAR Unavailable Unavailable Kosta PEDRAZA MD Unavailable Unavailable Kosta PEDRAZA MD Unavailable Unavailable Kosta PEDRAZA MD Unavailable Unavailable Kosta PEDRAZA MD Unavailable Unavailable Kosta PEDRAZA MD Unavailable Unavailable Kosta PEDRAZA MD Unavailable Unavailable Kosta PEDRAZA MD Unavailable Unavailable Kosta PEDRAZA MD Unavailable Unavailable Kosta PEDRAZA MD Unavailable Unavailable Kosta PEDRAZA MD Unavailable Unavailable Kosta PEDRAZA MD Unavailable Unavailable Kosta PEDRAZA MD Unavailable Unavailable Kosta PEDRAZA MD Unavailable Unavailable Kosta PEDRAZA MD Unavailable Unavailable Kosta PEDRAZA MD Unavailable Unavailable Kosta PEDRAZA MD Unavailable Unavailable Kosta PEDRAZA MD Unavailable Unavailable Kosta PEDRAZA MD Unavailable Unavailable Kosta PEDRAZA MD Unavailable Unavailable Kosta PEDRAZA MD Unavailable Unavailable Kosta PEDRAZA MD Unavailable Unavailable Kosta PEDRAZA MD Unavailable Unavailable Kosta PEDRAZA MD Unavailable Unavailable Kosta PEDRAZA MD Unavailable Unavailable Kosta PEDRAZA MD Unavailable Unavailable Kosta PEDRAZA MD Unavailable Unavailable Kosta PEDRAZA MD Unavailable Unavailable Kosta PEDRAZA MD Unavailable Unavailable Kosta PEDRAZA MD Unavailable Unavailable Kosta PEDRAZA MD Unavailable Unavailable Kosta PEDRAZA MD Unavailable Unavailable Kosta PEDRAZA MD Unavailable Unavailable Kosta PEDRAZA MD Unavailable Unavailable Kosta PEDRAZA MD Unavailable Unavailable Kosta PEDRAZA MD Unavailable Unavailable Kosta PEDRAZA MD Unavailable Unavailable Kosta PEDRAZA MD Unavailable Unavailable Kosta PEDRAZA MD Unavailable Unavailable Kosta PEDRAZA MD Unavailable Unavailable Kosta PEDRAZA MD Unavailable Unavailable Kosta PEDRAZA MD Unavailable Unavailable Kosta PEDRAZA MD Unavailable Unavailable Kosta PEDRAZA MD Unavailable Unavailable Kosta PEDRAZA MD Unavailable Unavailable Kosta PEDRAZA MD Unavailable Unavailable Kosta PEDRAZA MD Unavailable Unavailable Kosta PEDRAZA MD Unavailable Unavailable Kosta PEDRAZA MD Unavailable Unavailable Kosta PEDRAZA MD Unavailable Unavailable Kosta PEDRAZA MD Unavailable Unavailable Kosta PEDRAZA MD Unavailable Unavailable Kosta PEDRAZA MD Unavailable Unavailable Kosta PEDRAZA MD Unavailable Unavailable Kosta PEDRAZA MD Unavailable Unavailable Kosta PEDRAZA MD Unavailable Unavailable Kosta PEDRAZA MD Unavailable Unavailable Kosta PEDRAZA MD Unavailable Unavailable Kosta PEDRAZA MD Unavailable Unavailable Kosta PEDRAZA MD Unavailable Unavailable Kosta PEDRAZA MD Unavailable Unavailable Kosta PEDRAZA MD Unavailable Unavailable Kosta PEDRAZA MD Unavailable Unavailable Kosta PEDRAZA MD Unavailable Unavailable Kosta PEDRAZA MD Unavailable Unavailable Kosta PEDRAZA MD Unavailable Unavailable Kosta PEDRAZA MD Unavailable Unavailable Kosta PEDRAZA MD Unavailable Unavailable Kosta PEDRAZA MD Unavailable Unavailable Kosta PEDRAZA MD Unavailable Unavailable Kosta PEDRAZA MD Unavailable Unavailable Kosta PEDRAZA MD Unavailable Unavailable Kosta PEDRAZA MD Unavailable Unavailable Kosta PEDRAZA MD Unavailable Unavailable Kosta PEDRAZA MD Unavailable Unavailable Kosta PEDRAZA MD Unavailable Unavailable Kosta PEDRAZA MD Unavailable Unavailable SYED SHIPMAN MD Unavailable Unavailable SYED SHIPMAN MD Unavailable Unavailable SYED SHIPMAN MD Unavailable Unavailable SYED SHIPMAN MD Unavailable Unavailable SYED SHIPMAN MD Unavailable Unavailable SYED SHIPMAN MD Unavailable Unavailable SYED SHIPMAN MD Unavailable Unavailable SYED SHIPMAN MD Unavailable Unavailable SYED SHIPMAN MD Unavailable Unavailable SYED SHIPMAN MD Unavailable Unavailable SYED SHIPMAN MD Unavailable Unavailable SYED SHIPMAN MD Unavailable Unavailable SYED SHIPMAN MD Unavailable Unavailable SYED SHIPMAN MD Unavailable Unavailable SYED SHIPMAN MD Unavailable Unavailable SYED SHIPMAN MD Unavailable Unavailable SYED SHIPMAN MD Unavailable Unavailable SYED SHIPMAN MD Unavailable Unavailable SYED SHIPMAN MD Unavailable Unavailable SYED SHIPMAN MD Unavailable Unavailable SYED SHIPMAN MD Unavailable Unavailable SYED SHIPMAN MD Unavailable Unavailable SYED SHIPMAN MD Unavailable Unavailable SYED SHIPMAN MD Unavailable Unavailable SYED SHIPMAN MD Unavailable Unavailable RAMONITA, LYNCH MD Unavailable Unavailable RAMONITA, LYNCH MD Unavailable Unavailable RAMONITA, LYNCH MD Unavailable Unavailable RAMONITA, LYNCH MD Unavailable Unavailable RAMONITA, LYNCH MD Unavailable Unavailable RAMONITA, LYNCH MD Unavailable Unavailable RAMONITA, LYNCH MD Unavailable Unavailable RAMONITA, LYNCH MD Unavailable Unavailable RAMONITA, LYNCH MD Unavailable Unavailable RAMONITA, LYNCH MD Unavailable Unavailable RAMONITA, LYNCH MD Unavailable Unavailable RAMONITA, LYNCH MD Unavailable Unavailable RAMONITA, LYNCH MD Unavailable Unavailable RAMONITA, LYNCH MD Unavailable Unavailable RAMONITA, LYNCH MD Unavailable Unavailable RAMONITA, LYNCH MD Unavailable Unavailable RAMONITA, LYNCH MD Unavailable Unavailable RAMONITA, LYNCH MD Unavailable Unavailable RAMONITA, LYNCH MD Unavailable Unavailable RAMONITA, LYNCH MD Unavailable Unavailable RAMONITA, YLNCH MD Unavailable Unavailable RAMONITA, LYNCH MD Unavailable Unavailable RAMONITA, LYNCH MD Unavailable Unavailable RAMONITA, LYNCH MD Unavailable Unavailable RAMONITA, LYNCH MD Unavailable Unavailable RAMONITA, LYNCH MD Unavailable Unavailable RAMONITA, LYNCH MD Unavailable Unavailable RAMONITA, LYNCH MD Unavailable Unavailable RAMONITA, LYNCH MD Unavailable Unavailable Re-disclosure Warning The records that you are about to access may contain information from federally-assisted alcohol or drug abuse programs. If such information is present, then the following federally mandated warning applies: This information has been disclosed to you from records protected by federal confidentiality rules (42 CFR part 2). The federal rules prohibit you from making any further disclosure of this information unless further disclosure is expressly permitted by the written consent of the person to whom it pertains or as otherwise permitted by 42 CFR part 2. A general authorization for the release of medical or other information is NOT sufficient for this purpose. The Federal rules restrict any use of the information to criminally investigate or prosecute any alcohol or drug abuse patient.The records that you are about to access may contain highly sensitive health information, the redisclosure of which is protected by Article 27-F of the [facility] Public Health law. If you continue you may have access to information: Regarding HIV / AIDS; Provided by facilities licensed or operated by the [facility] Office of Mental Health; or Provided by the [facility] Office for People With Developmental Disabilities. If such information is present, then the following [facility] mandated warning applies: This information has been disclosed to you from confidential records which are protected by state law. State law prohibits you from making any further disclosure of this information without the specific written consent of the person to whom it pertains, or as otherwise permitted by law. Any unauthorized further disclosure in violation of state law may result in a fine or residential sentence or both. A general authorization for the release of medical or other information is NOT sufficient authorization for further disc losure. Family History Family Member Name Family Member Gender Family Member Status Date o f Status Description Data Source(s) Unknown Unknown Problem [facility] ([facility] Unknown Unknown Problem [facility] ([facility] ) Unknown Male Problem [facility] ([facility] () Encounters Encounter Providers Location Date Indications Data Source(s ) Outpatient Attender: Manjit Elder/Christian/Alexis/Rein dl 04/06/2020 10:10:00 AM EST [facility] ([facility] Outpatient Attender: DAPHNE PEDRAZA MD [place] [facility] 02/2020 08:30:00 AM EST [facility] ([facility] Outpatient Attender: SYED GONZALEZ.CARLEEN-CARLOS.CARLEEN 0 12:00:00 AM EST - 03/18/2020 08:32:57 AM EST [facility] Outpatient Attender: DAPHNE PEDRAZA MD [place] [facility] 11/2019 08:45:00 AM EDT [facility] ([facility] Immunizations Vaccine Date Status Description Data Source(s) COVID-19 VACCINE, MRNA, [id number], LNP-S (PFIZER)/PF 06/05/19 21 12:00:00 AM EST completed [facility] COVID-19 VACCINE, MRNA, [id number], LNP-S (PFIZER)/PF 05/15/19 21 12:00:00 AM EST completed [facility] pneumococcal polysaccharide PPV23 03/25/2020 09:00:00 AM EST comple ben [facility] ([facility] INFLUENZA VACCINE QUADRIVALENT (65 YR UP)/MF59 C.1/PF 03/25/2020 12:00:00 AM EST completed [facility] VARICELLA-ZOSTER VIRUS GLYCOPROTEIN E,REC/AS01B ADJUVA NT/PF 12/01/2019 12:00:00 AM EDT completed [facility] Medications Medication Brand Name Start Date Product Form Dose Route Admi nistrative Instructions Pharmacy Instructions Status Indications Reaction Description Data Source(s) 100 mg 03/25/2020 12:00:00 AM EST tablet 6 TAKE ONE TABLET BY MOUTH EVERY DAY NEEDED TAKE ONE TABLET BY MOUTH EVERY DAY NEEDED SOLD: 04/27/2020 [facility] sildenafil 100 MG Oral Tablet [Viagra] Viagra 03/25/2020 12:00:00 AM EST ORAL active [facility] ([facility] 100 mg 03/25/2020 12:00:00 AM EST tablet 6 TAKE ONE TABLET BY MOUTH EVERY DAY NEEDED TAKE ONE TABLET BY MOUTH EVERY DAY NEEDED SOLD: 03/25/2020 [facility] 0.5 ML Streptococcus pneumoniae serotype 1 capsular antigen diphtheria XCR253 protein conjugate vaccine 0.0044 MG/ML / Streptococcus pneumoniae serotype 14 capsular antigen diphtheria OHU806 protein conjugate vaccine 0.0044 MG/ML / Streptococcus pneumonia Prevnar 13 09/21/2019 12:00:00 AM EDT active [facility] ([facility] Shingrix Shingrix 09/21/2019 12:00:00 AM EDT activ e MED[facility] ([facility] Insurance Providers Payer name Policy type / Coverage type Policy ID Covered alliance party ID Covered alliance party's relationship to nunes Policy Nunes Plan Information MEDICARE [id number] SP [id number] [facility] [id number] SP [id number] [employer] [place] [id number] SP [id number] [employer] [id number] SP [id number] [employer] BCBS [id number] MEDICARE [id number] MEDICARE [id number] Yi [id number] [employer]BS [id number] Yi YLS [id number] [employer] [id number] SP [id number] [employer] [place] [id number] SP [id number] [place] Plan F [id number] SELF [id number] [place] Plan F [id number] SELF [id number] [facility] [place] Commercial [id number] Self [id number] [employer] [place] [place] [id number] SP [id number] [employer] [id number] SP [id number] [employer] [place] Commercial [id number] Self [id number] [employer] [place] Health Maintenance Organization (HMO) [id number] Self [id number] [place] [facility] Commercial [id number] Self [id number] [place] [facility] Commercial [id number] Self [id number] [place] [facility] Commercial [id number] Self [id number] [place] [facility] Commercial [id number] Self [id number] [place] [facility] Commercial [id number] Self [id number] EMPIRE ([facility] P [id number] S [id number] [employer] [place] P [id number] S [id number] Problems, Conditions, and Diagnoses Code Display Name Description Problem Type Effective Dates Data Source(s) R94.31 Abnormal electrocardiogram [ECG] [EKG] A bnormal electrocardiogram (ECG) (EKG) Diagnosis 03/18/2020 07:57:11 AM EST [facility] I77.810 Thoracic aortic ectasia Thoracic aortic ectasia Diagno sis 03/18/2020 07:57:11 AM EST [facility] Results ID Date Data Source [id number] 06/02/2020 11:00:00 AM EST [facility] Name Value Range Interpretation Code Description Data Ernestina rce(s) Supporting Document(s) SARS coronavirus 2 RNA Not Detected [facility] This lab was ordered by [facility] and reported by [facility]. ID Date Data Source [id number] 03/25/2020 09:54:00 AM EST [facility] ([facility] Name Value Range Interpretation Code Description Data Ernestina rce(s) Supporting Document(s) Chol 206 mg/dL 0-200 Above high normal [facility] ([facility] CHRONIC KIDNEY DISEASE STAGING PER NKF: MALE GFR INTERPRETATION: 20-49 YRS: [...] DESIRABLE: <130 MG/DL <110 MG/DL BORDERLINE-HIGH RISK: 130- 159 MG/DL 110-129 MG/DL HIGH RISK: >160 MG/DL >130 MG/DL *CHILDREN AND ADOLESCENTS REPRESENTS INDIVIDUALA AGED 2-19 YEARS EXCLUSIVE. Cholesterol in HDL [Mass/volume] in Serum or Plasma 45 mg/dL 35-55 [facility] ([facility] CHRONIC KIDNEY DISEASE STAGING PER NKF: MALE GFR INTERPRETATION: 20-49 YRS: [...] DESIRABLE: <130 MG/DL <110 MG/DL BORDERLINE-HIGH RISK: 130- 159 MG/DL 110-129 MG/DL HIGH RISK: >160 MG/DL >130 MG/DL *CHILDREN AND ADOLESCENTS REPRESENTS INDIVIDUALA AGED 2-19 YEARS EXCLUSIVE. Trig 100 mg/dL 35-200 [facility] CHRONIC KIDNEY DISEASE STAGING PER NKF: MALE GFR INTERPRETATION: 20-49 YRS: [...] DESIRABLE: <130 MG/DL <110 MG/DL BORDERLINE-HIGH RISK: 130- 159 MG/DL 110-129 MG/DL HIGH RISK: >160 MG/DL >130 MG/DL *CHILDREN AND ADOLESCENTS REPRESENTS INDIVIDUALA AGED 2-19 YEARS EXCLUSIVE. LDL_C 141 Calc 75-129 Above high normal [facility]IRUD[facility] ([facility] CHRONIC KIDNEY DISEASE STAGING PER NKF: MALE GFR INTERPRETATION: 20-49 YRS: [...] DESIRABLE: <130 MG/DL <110 MG/DL BORDERLINE-HIGH RISK: 130- 159 MG/DL 110-129 MG/DL HIGH RISK: >160 MG/DL >130 MG/DL *CHILDREN AND ADOLESCENTS REPRESENTS INDIVIDUALA AGED 2-19 YEARS EXCLUSIVE. Cho/HDL Ratio 4.5 Calc MED[facility]IRUDH ([facility] CHRONIC KIDNEY DISEASE STAGING PER NKF: MALE GFR INTERPRETATION: 20-49 YRS: [...] DESIRABLE: <130 MG/DL <110 MG/DL BORDERLINE-HIGH RISK: 130- 159 MG/DL 110-129 MG/DL HIGH RISK: >160 MG/DL >130 MG/DL *CHILDREN AND ADOLESCENTS REPRESENTS INDIVIDUALA AGED 2-19 YEARS EXCLUSIVE. ID Date Data Source [id number] 03/25/2020 09:54:00 AM EST [facility] ([facility] Name Value Range Interpretation Code Description Data Ernestina rce(s) Supporting Document(s) Glu 105 mg/dL 70-110 [facility] ([facility] CHRONIC KIDNEY DISEASE STAGING PER NKF: MALE GFR INTERPRETATION: 20-49 YRS: [...] DESIRABLE: <130 MG/DL <110 MG/DL BORDERLINE-HIGH RISK: 130- 159 MG/DL 110-129 MG/DL HIGH RISK: >160 MG/DL >130 MG/DL *CHILDREN AND ADOLESCENTS REPRESENTS INDIVIDUALA AGED 2-19 YEARS EXCLUSIVE. BUN 17 mg/dL 8-23 [facility] ([facility] CHRONIC KIDNEY DISEASE STAGING PER NKF: MALE GFR INTERPRETATION: 20-49 YRS: [...] DESIRABLE: <130 MG/DL <110 MG/DL BORDERLINE-HIGH RISK: 130- 159 MG/DL 110-129 MG/DL HIGH RISK: >160 MG/DL >130 MG/DL *CHILDREN AND ADOLESCENTS REPRESENTS INDIVIDUALA AGED 2-19 YEARS EXCLUSIVE. Creat 0.9 mg/dL 0.7-1.2 [facility] ([facility] CHRONIC KIDNEY DISEASE STAGING PER NKF: MALE GFR INTERPRETATION: 20-49 YRS: [...] DESIRABLE: <130 MG/DL <110 MG/DL BORDERLINE-HIGH RISK: 130- 159 MG/DL 110-129 MG/DL HIGH RISK: >160 MG/DL >130 MG/DL *CHILDREN AND ADOLESCENTS REPRESENTS INDIVIDUALA AGED 2-19 YEARS EXCLUSIVE. BUN/Creatinine Ratio 18.6 [facility] CHRONIC KIDNEY DISEASE STAGING PER NKF: MALE GFR INTERPRETATION: 20-49 YRS: [...] DESIRABLE: <130 MG/DL <110 MG/DL BORDERLINE-HIGH RISK: 130- 159 MG/DL 110-129 MG/DL HIGH RISK: >160 MG/DL >130 MG/DL *CHILDREN AND ADOLESCENTS REPRESENTS INDIVIDUALA AGED 2-19 YEARS EXCLUSIVE. CL 104.3 mmol/L 98.0-107.0 [facility] ([facility] CHRONIC KIDNEY DISEASE STAGING PER NKF: MALE GFR INTERPRETATION: 20-49 YRS: [...] DESIRABLE: <130 MG/DL <110 MG/DL BORDERLINE-HIGH RISK: 130- 159 MG/DL 110-129 MG/DL HIGH RISK: >160 MG/DL >130 MG/DL *CHILDREN AND ADOLESCENTS REPRESENTS INDIVIDUALA AGED 2-19 YEARS EXCLUSIVE. K 4.4 mmol/L 3.5-5.1 [facility] ([facility] CHRONIC KIDNEY DISEASE STAGING PER NKF: MALE GFR INTERPRETATION: 20-49 YRS: [...] DESIRABLE: <130 MG/DL <110 MG/DL BORDERLINE-HIGH RISK: 130- 159 MG/DL 110-129 MG/DL HIGH RISK: >160 MG/DL >130 MG/DL *CHILDREN AND ADOLESCENTS REPRESENTS INDIVIDUALA AGED 2-19 YEARS EXCLUSIVE. Na 139 mmol/L 136-145 [facility] CHRONIC KIDNEY DISEASE STAGING PER NKF: MALE GFR INTERPRETATION: 20-49 YRS: [...] DESIRABLE: <130 MG/DL <110 MG/DL BORDERLINE-HIGH RISK: 130- 159 MG/DL 110-129 MG/DL HIGH RISK: >160 MG/DL >130 MG/DL *CHILDREN AND ADOLESCENTS REPRESENTS INDIVIDUALA AGED 2-19 YEARS EXCLUSIVE. TP 6.4 g/dL 6.6-8.7 Below low normal [facility] ( [facility] CHRONIC KIDNEY DISEASE STAGING PER NKF: MALE GFR INTERPRETATION: 20-49 YRS: [...] DESIRABLE: <130 MG/DL <110 MG/DL BORDERLINE-HIGH RISK: 130- 159 MG/DL 110-129 MG/DL HIGH RISK: >160 MG/DL >130 MG/DL *CHILDREN AND ADOLESCENTS REPRESENTS INDIVIDUALA AGED 2-19 YEARS EXCLUSIVE. Co2 22.0 mmol/L 22.0-29.0 [facility] ([facility] CHRONIC KIDNEY DISEASE STAGING PER NKF: MALE GFR INTERPRETATION: 20-49 YRS: [...] DESIRABLE: <130 MG/DL <110 MG/DL BORDERLINE-HIGH RISK: 130- 159 MG/DL 110-129 MG/DL HIGH RISK: >160 MG/DL >130 MG/DL *CHILDREN AND ADOLESCENTS REPRESENTS INDIVIDUALA AGED 2-19 YEARS EXCLUSIVE. CA 9.2 mg/dL 8.6-10.2 [facility] ([facility] CHRONIC KIDNEY DISEASE STAGING PER NKF: MALE GFR INTERPRETATION: 20-49 YRS: [...] DESIRABLE: <130 MG/DL <110 MG/DL BORDERLINE-HIGH RISK: 130- 159 MG/DL 110-129 MG/DL HIGH RISK: >160 MG/DL >130 MG/DL *CHILDREN AND ADOLESCENTS REPRESENTS INDIVIDUALA AGED 2-19 YEARS EXCLUSIVE. Globulin 1.9 CALC [facility] ([facility] CHRONIC KIDNEY DISEASE STAGING PER NKF: MALE GFR INTERPRETATION: 20-49 YRS: [...] DESIRABLE: <130 MG/DL <110 MG/DL BORDERLINE-HIGH RISK: 130- 159 MG/DL 110-129 MG/DL HIGH RISK: >160 MG/DL >130 MG/DL *CHILDREN AND ADOLESCENTS REPRESENTS INDIVIDUALA AGED 2-19 YEARS EXCLUSIVE. Alb 4.5 g/dL 3.5-5.2 [facility] ([facility] CHRONIC KIDNEY DISEASE STAGING PER NKF: MALE GFR INTERPRETATION: 20-49 YRS: [...] DESIRABLE: <130 MG/DL <110 MG/DL BORDERLINE-HIGH RISK: 130- 159 MG/DL 110-129 MG/DL HIGH RISK: >160 MG/DL >130 MG/DL *CHILDREN AND ADOLESCENTS REPRESENTS INDIVIDUALA AGED 2-19 YEARS EXCLUSIVE. A/G Ratio 2.3 [facility] ([facility] CHRONIC KIDNEY DISEASE STAGING PER NKF: MALE GFR INTERPRETATION: 20-49 YRS: [...] DESIRABLE: <130 MG/DL <110 MG/DL BORDERLINE-HIGH RISK: 130- 159 MG/DL 110-129 MG/DL HIGH RISK: >160 MG/DL >130 MG/DL *CHILDREN AND ADOLESCENTS REPRESENTS INDIVIDUALA AGED 2-19 YEARS EXCLUSIVE. Ast (Sgot) 20 U/L 0-40 [facility] ([facility] CHRONIC KIDNEY DISEASE STAGING PER NKF: MALE GFR INTERPRETATION: 20-49 YRS: [...] DESIRABLE: <130 MG/DL <110 MG/DL BORDERLINE-HIGH RISK: 130- 159 MG/DL 110-129 MG/DL HIGH RISK: >160 MG/DL >130 MG/DL *CHILDREN AND ADOLESCENTS REPRESENTS INDIVIDUALA AGED 2-19 YEARS EXCLUSIVE. Alt (SGPT) 26 U/L 0-41 [facility] ([facility] CHRONIC KIDNEY DISEASE STAGING PER NKF: MALE GFR INTERPRETATION: 20-49 YRS: [...] DESIRABLE: <130 MG/DL <110 MG/DL BORDERLINE-HIGH RISK: 130- 159 MG/DL 110-129 MG/DL HIGH RISK: >160 MG/DL >130 MG/DL *CHILDREN AND ADOLESCENTS REPRESENTS INDIVIDUALA AGED 2-19 YEARS EXCLUSIVE. Alp 54.3 U/L 40-129 [facility] ([facility] CHRONIC KIDNEY DISEASE STAGING PER NKF: MALE GFR INTERPRETATION: 20-49 YRS: [...] DESIRABLE: <130 MG/DL <110 MG/DL BORDERLINE-HIGH RISK: 130- 159 MG/DL 110-129 MG/DL HIGH RISK: >160 MG/DL >130 MG/DL *CHILDREN AND ADOLESCENTS REPRESENTS INDIVIDUALA AGED 2-19 YEARS EXCLUSIVE. Anion Gap 17 mmol/L [facility] ([facility] CHRONIC KIDNEY DISEASE STAGING PER NKF: MALE GFR INTERPRETATION: 20-49 YRS: [...] DESIRABLE: <130 MG/DL <110 MG/DL BORDERLINE-HIGH RISK: 130- 159 MG/DL 110-129 MG/DL HIGH RISK: >160 MG/DL >130 MG/DL *CHILDREN AND ADOLESCENTS REPRESENTS INDIVIDUALA AGED 2-19 YEARS EXCLUSIVE. Tbili 0.52 mg/dL 0.0-1.2 [facility] ([facility] CHRONIC KIDNEY DISEASE STAGING PER NKF: MALE GFR INTERPRETATION: 20-49 YRS: [...] DESIRABLE: <130 MG/DL <110 MG/DL BORDERLINE-HIGH RISK: 130- 159 MG/DL 110-129 MG/DL HIGH RISK: >160 MG/DL >130 MG/DL *CHILDREN AND ADOLESCENTS REPRESENTS INDIVIDUALA AGED 2-19 YEARS EXCLUSIVE. Osmolality-Calculated 279.6 CALC [facility] ([facility] CHRONIC KIDNEY DISEASE STAGING PER NKF: MALE GFR INTERPRETATION: 20-49 YRS: [...] DESIRABLE: <130 MG/DL <110 MG/DL BORDERLINE-HIGH RISK: 130- 159 MG/DL 110-129 MG/DL HIGH RISK: >160 MG/DL >130 MG/DL *CHILDREN AND ADOLESCENTS REPRESENTS INDIVIDUALA AGED 2-19 YEARS EXCLUSIVE. eGFR 104 # [facility] ( [facility] CHRONIC KIDNEY DISEASE STAGING PER NKF: MALE GFR INTERPRETATION: 20-49 YRS: [...] DESIRABLE: <130 MG/DL <110 MG/DL BORDERLINE-HIGH RISK: 130- 159 MG/DL 110-129 MG/DL HIGH RISK: >160 MG/DL >130 MG/DL *CHILDREN AND ADOLESCENTS REPRESENTS INDIVIDUALA AGED 2-19 YEARS EXCLUSIVE. eGFR Non-Afr. Guyanese 89 # RAYMON ([facility] CHRONIC KIDNEY DISEASE STAGING PER NKF: MALE GFR INTERPRETATION: 20-49 YRS: [...] DESIRABLE: <130 MG/DL <110 MG/DL BORDERLINE-HIGH RISK: 130- 159 MG/DL 110-129 MG/DL HIGH RISK: >160 MG/DL >130 MG/DL *CHILDREN AND ADOLESCENTS REPRESENTS INDIVIDUALA AGED 2-19 YEARS EXCLUSIVE. ID Date Data Source [id number] 09/21/2019 12:15:00 PM JESSICA ENNIS ([facility] Name Value Range Interpretation Code Description Data Ernestina rce(s) Supporting Document(s) Trig 70 mg/dL 35-200 [facility] CHRONIC KIDNEY DISEASE STAGING PER NKF: MALE GFR INTERPRETATION: 20-49 YRS: [...] DESIRABLE: <130 MG/DL <110 MG/DL BORDERLINE-HIGH RISK: 130- 159 MG/DL 110-129 MG/DL HIGH RISK: >160 MG/DL >130 MG/DL *CHILDREN AND ADOLESCENTS REPRESENTS INDIVIDUALA AGED 2-19 YEARS EXCLUSIVE. Chol 187 mg/dL 0-200 MEDENT ([facility] CHRONIC KIDNEY DISEASE STAGING PER NKF: MALE GFR INTERPRETATION: 20-49 YRS: [...] DESIRABLE: <130 MG/DL <110 MG/DL BORDERLINE-HIGH RISK: 130- 159 MG/DL 110-129 MG/DL HIGH RISK: >160 MG/DL >130 MG/DL *CHILDREN AND ADOLESCENTS REPRESENTS INDIVIDUALA AGED 2-19 YEARS EXCLUSIVE. Cholesterol in HDL [Mass/volume] in Serum or Plasma 48 mg/dL 35-55 MEDENT ([facility] CHRONIC KIDNEY DISEASE STAGING PER NKF: MALE GFR INTERPRETATION: 20-49 YRS: [...] DESIRABLE: <130 MG/DL <110 MG/DL BORDERLINE-HIGH RISK: 130- 159 MG/DL 110-129 MG/DL HIGH RISK: >160 MG/DL >130 MG/DL *CHILDREN AND ADOLESCENTS REPRESENTS INDIVIDUALA AGED 2-19 YEARS EXCLUSIVE. LDL_C 126 Calc 75-129 MEDENT ([facility] CHRONIC KIDNEY DISEASE STAGING PER NKF: MALE GFR INTERPRETATION: 20-49 YRS: [...] DESIRABLE: <130 MG/DL <110 MG/DL BORDERLINE-HIGH RISK: 130- 159 MG/DL 110-129 MG/DL HIGH RISK: >160 MG/DL >130 MG/DL *CHILDREN AND ADOLESCENTS REPRESENTS INDIVIDUALA AGED 2-19 YEARS EXCLUSIVE. Cho/HDL Ratio 3.9 Calc [facility] CHRONIC KIDNEY DISEASE STAGING PER NKF: MALE GFR INTERPRETATION: 20-49 YRS: [...] DESIRABLE: <130 MG/DL <110 MG/DL BORDERLINE-HIGH RISK: 130- 159 MG/DL 110-129 MG/DL HIGH RISK: >160 MG/DL >130 MG/DL *CHILDREN AND ADOLESCENTS REPRESENTS INDIVIDUALA AGED 2-19 YEARS EXCLUSIVE. ID Date Data Source [id number] 09/21/2019 12:15:00 PM EDT MEDENT ([facility] Name Value Range Interpretation Code Description Data Ernestina rce(s) Supporting Document(s) Glu 104 mg/dL 70-110 [facility] ([facility] CHRONIC KIDNEY DISEASE STAGING PER NKF: MALE GFR INTERPRETATION: 20-49 YRS: [...] DESIRABLE: <130 MG/DL <110 MG/DL BORDERLINE-HIGH RISK: 130- 159 MG/DL 110-129 MG/DL HIGH RISK: >160 MG/DL >130 MG/DL *CHILDREN AND ADOLESCENTS REPRESENTS INDIVIDUALA AGED 2-19 YEARS EXCLUSIVE. BUN 16 mg/dL 8-23 [facility] ([facility] CHRONIC KIDNEY DISEASE STAGING PER NKF: MALE GFR INTERPRETATION: 20-49 YRS: [...] DESIRABLE: <130 MG/DL <110 MG/DL BORDERLINE-HIGH RISK: 130- 159 MG/DL 110-129 MG/DL HIGH RISK: >160 MG/DL >130 MG/DL *CHILDREN AND ADOLESCENTS REPRESENTS INDIVIDUALA AGED 2-19 YEARS EXCLUSIVE. Creat 0.8 mg/dL 0.7-1.2 [facility] ([facility] CHRONIC KIDNEY DISEASE STAGING PER NKF: MALE GFR INTERPRETATION: 20-49 YRS: [...] DESIRABLE: <130 MG/DL <110 MG/DL BORDERLINE-HIGH RISK: 130- 159 MG/DL 110-129 MG/DL HIGH RISK: >160 MG/DL >130 MG/DL *CHILDREN AND ADOLESCENTS REPRESENTS INDIVIDUALA AGED 2-19 YEARS EXCLUSIVE. BUN/Creatinine Ratio 20.3 CALC MEDENT ([facility] CHRONIC KIDNEY DISEASE STAGING PER NKF: MALE GFR INTERPRETATION: 20-49 YRS: [...] DESIRABLE: <130 MG/DL <110 MG/DL BORDERLINE-HIGH RISK: 130- 159 MG/DL 110-129 MG/DL HIGH RISK: >160 MG/DL >130 MG/DL *CHILDREN AND ADOLESCENTS REPRESENTS INDIVIDUALA AGED 2-19 YEARS EXCLUSIVE. Na 140 mmol/L 136-145 [facility] ([facility] CHRONIC KIDNEY DISEASE STAGING PER NKF: MALE GFR INTERPRETATION: 20-49 YRS: [...] DESIRABLE: <130 MG/DL <110 MG/DL BORDERLINE-HIGH RISK: 130- 159 MG/DL 110-129 MG/DL HIGH RISK: >160 MG/DL >130 MG/DL *CHILDREN AND ADOLESCENTS REPRESENTS INDIVIDUALA AGED 2-19 YEARS EXCLUSIVE. CL 106.6 mmol/L 98.0-107.0 MEDENT ([facility] CHRONIC KIDNEY DISEASE STAGING PER NKF: MALE GFR INTERPRETATION: 20-49 YRS: [...] DESIRABLE: <130 MG/DL <110 MG/DL BORDERLINE-HIGH RISK: 130- 159 MG/DL 110-129 MG/DL HIGH RISK: >160 MG/DL >130 MG/DL *CHILDREN AND ADOLESCENTS REPRESENTS INDIVIDUALA AGED 2-19 YEARS EXCLUSIVE. K 4.3 mmol/L 3.5-5.1 [facility] ([facility] CHRONIC KIDNEY DISEASE STAGING PER NKF: MALE GFR INTERPRETATION: 20-49 YRS: [...] DESIRABLE: <130 MG/DL <110 MG/DL BORDERLINE-HIGH RISK: 130- 159 MG/DL 110-129 MG/DL HIGH RISK: >160 MG/DL >130 MG/DL *CHILDREN AND ADOLESCENTS REPRESENTS INDIVIDUALA AGED 2-19 YEARS EXCLUSIVE. Co2 17.8 mmol/L 22.0-29.0 Below low normal MEDENT ([facility] CHRONIC KIDNEY DISEASE STAGING PER NKF: MALE GFR INTERPRETATION: 20-49 YRS: [...] DESIRABLE: <130 MG/DL <110 MG/DL BORDERLINE-HIGH RISK: 130- 159 MG/DL 110-129 MG/DL HIGH RISK: >160 MG/DL >130 MG/DL *CHILDREN AND ADOLESCENTS REPRESENTS INDIVIDUALA AGED 2-19 YEARS EXCLUSIVE. CA 9.1 mg/dL 8.6-10.2 [facility] ([facility] CHRONIC KIDNEY DISEASE STAGING PER NKF: MALE GFR INTERPRETATION: 20-49 YRS: [...] DESIRABLE: <130 MG/DL <110 MG/DL BORDERLINE-HIGH RISK: 130- 159 MG/DL 110-129 MG/DL HIGH RISK: >160 MG/DL >130 MG/DL *CHILDREN AND ADOLESCENTS REPRESENTS INDIVIDUALA AGED 2-19 YEARS EXCLUSIVE. TP 6.3 g/dL 6.6-8.7 Below low normal MEDENT ( [facility] CHRONIC KIDNEY DISEASE STAGING PER NKF: MALE GFR INTERPRETATION: 20-49 YRS: [...] DESIRABLE: <130 MG/DL <110 MG/DL BORDERLINE-HIGH RISK: 130- 159 MG/DL 110-129 MG/DL HIGH RISK: >160 MG/DL >130 MG/DL *CHILDREN AND ADOLESCENTS REPRESENTS INDIVIDUALA AGED 2-19 YEARS EXCLUSIVE. Alb 4.4 g/dL 3.5-5.2 MED[facility] ([facility] CHRONIC KIDNEY DISEASE STAGING PER NKF: MALE GFR INTERPRETATION: 20-49 YRS: [...] DESIRABLE: <130 MG/DL <110 MG/DL BORDERLINE-HIGH RISK: 130- 159 MG/DL 110-129 MG/DL HIGH RISK: >160 MG/DL >130 MG/DL *CHILDREN AND ADOLESCENTS REPRESENTS INDIVIDUALA AGED 2-19 YEARS EXCLUSIVE. A/G Ratio 2.3 CALC MED[facility] ([facility] CHRONIC KIDNEY DISEASE STAGING PER NKF: MALE GFR INTERPRETATION: 20-49 YRS: [...] DESIRABLE: <130 MG/DL <110 MG/DL BORDERLINE-HIGH RISK: 130- 159 MG/DL 110-129 MG/DL HIGH RISK: >160 MG/DL >130 MG/DL *CHILDREN AND ADOLESCENTS REPRESENTS INDIVIDUALA AGED 2-19 YEARS EXCLUSIVE. Globulin 1.9 CALC MEDENT ([facility] CHRONIC KIDNEY DISEASE STAGING PER NKF: MALE GFR INTERPRETATION: 20-49 YRS: [...] DESIRABLE: <130 MG/DL <110 MG/DL BORDERLINE-HIGH RISK: 130- 159 MG/DL 110-129 MG/DL HIGH RISK: >160 MG/DL >130 MG/DL *CHILDREN AND ADOLESCENTS REPRESENTS INDIVIDUALA AGED 2-19 YEARS EXCLUSIVE. Alt (SGPT) 23 U/L 0-41 [facility] ([facility] CHRONIC KIDNEY DISEASE STAGING PER NKF: MALE GFR INTERPRETATION: 20-49 YRS: [...] DESIRABLE: <130 MG/DL <110 MG/DL BORDERLINE-HIGH RISK: 130- 159 MG/DL 110-129 MG/DL HIGH RISK: >160 MG/DL >130 MG/DL *CHILDREN AND ADOLESCENTS REPRESENTS INDIVIDUALA AGED 2-19 YEARS EXCLUSIVE. Alp 62.4 U/L 40-129 MED[facility] ([facility] CHRONIC KIDNEY DISEASE STAGING PER NKF: MALE GFR INTERPRETATION: 20-49 YRS: [...] DESIRABLE: <130 MG/DL <110 MG/DL BORDERLINE-HIGH RISK: 130- 159 MG/DL 110-129 MG/DL HIGH RISK: >160 MG/DL >130 MG/DL *CHILDREN AND ADOLESCENTS REPRESENTS INDIVIDUALA AGED 2-19 YEARS EXCLUSIVE. Tbili 0.62 mg/dL 0.0-1.2 MEDENT ([facility] CHRONIC KIDNEY DISEASE STAGING PER NKF: MALE GFR INTERPRETATION: 20-49 YRS: [...] DESIRABLE: <130 MG/DL <110 MG/DL BORDERLINE-HIGH RISK: 130- 159 MG/DL 110-129 MG/DL HIGH RISK: >160 MG/DL >130 MG/DL *CHILDREN AND ADOLESCENTS REPRESENTS INDIVIDUALA AGED 2-19 YEARS EXCLUSIVE. Ast (Sgot) 22 U/L 0-40 MEDENT ([facility] CHRONIC KIDNEY DISEASE STAGING PER NKF: MALE GFR INTERPRETATION: 20-49 YRS: [...] DESIRABLE: <130 MG/DL <110 MG/DL BORDERLINE-HIGH RISK: 130- 159 MG/DL 110-129 MG/DL HIGH RISK: >160 MG/DL >130 MG/DL *CHILDREN AND ADOLESCENTS REPRESENTS INDIVIDUALA AGED 2-19 YEARS EXCLUSIVE. Anion Gap 20 mmol/L MEDENT ([facility] CHRONIC KIDNEY DISEASE STAGING PER NKF: MALE GFR INTERPRETATION: 20-49 YRS: [...] DESIRABLE: <130 MG/DL <110 MG/DL BORDERLINE-HIGH RISK: 130- 159 MG/DL 110-129 MG/DL HIGH RISK: >160 MG/DL >130 MG/DL *CHILDREN AND ADOLESCENTS REPRESENTS INDIVIDUALA AGED 2-19 YEARS EXCLUSIVE. Osmolality-Calculated 281.1 CALC MED ENT ([facility] CHRONIC KIDNEY DISEASE STAGING PER NKF: MALE GFR INTERPRETATION: 20-49 YRS: [...] DESIRABLE: <130 MG/DL <110 MG/DL BORDERLINE-HIGH RISK: 130- 159 MG/DL 110-129 MG/DL HIGH RISK: >160 MG/DL >130 MG/DL *CHILDREN AND ADOLESCENTS REPRESENTS INDIVIDUALA AGED 2-19 YEARS EXCLUSIVE. eGFR 109 # MEDENT ( [facility] CHRONIC KIDNEY DISEASE STAGING PER NKF: MALE GFR INTERPRETATION: 20-49 YRS: [...] DESIRABLE: <130 MG/DL <110 MG/DL BORDERLINE-HIGH RISK: 130- 159 MG/DL 110-129 MG/DL HIGH RISK: >160 MG/DL >130 MG/DL *CHILDREN AND ADOLESCENTS REPRESENTS INDIVIDUALA AGED 2-19 YEARS EXCLUSIVE. eGFR Non-Afr. Guyanese 94 # MEDENT ([facility] CHRONIC KIDNEY DISEASE STAGING PER NKF: MALE GFR INTERPRETATION: 20-49 YRS: [...] DESIRABLE: <130 MG/DL <110 MG/DL BORDERLINE-HIGH RISK: 130- 159 MG/DL 110-129 MG/DL HIGH RISK: >160 MG/DL >130 MG/DL *CHILDREN AND ADOLESCENTS REPRESENTS INDIVIDUALA AGED 2-19 YEARS EXCLUSIVE. Procedure Social History Code Duration Value Status Description Data Source(s ) Alcohol intake 03/18/2020 12:00:00 AM EST Yes completed [facility] Smoking 03/18/2020 12:00:00 AM EST Never smoker completed Never s moker [facility] Vital Signs ID Date Data Source UNK Name Value Range Interpretation Code Description Data Source(s) Body surface area Derived from formula 2.30 m2 2.30 m2 [facility] ([facility]) Body weight 103.421 kg 103.421 kg [facility] ([facility] [place] body weight 190 [lb_av] 190 [lb_av] [facility] Body mass index (BMI) [Ratio] 29.3 kg/m2 29.3 k g/m2 [facility] ([facility]) Body weight 228.00 [lb_av] 228.00 [lb_av] [facility] Body height 74 [in_i] 74 [in_i] [facility] ([facility]) 6'2" Heart rate 65 /min 65 /min [facility] ([facility]) Diastolic blood pressure 71 mm[Hg] 71 mm[Hg] [facility] ([facility]) Systolic blood pressure 117 mm[Hg] 117 mm[Hg] M [facility] ([facility]) Body surface area Derived from formula 2.30 m2 2.30 m2 [facility] ([facility]) Body weight 103.478 kg 103.478 kg [facility] ([facility]) [place] body weight 190 [lb_av] 190 [lb_av] MEDEN T ([facility]) Body mass index (BMI) [Ratio] 29.3 kg/m2 29.3 k g/m2 [facility] ([facility]) Body weight 228.12 [lb_av] 228.12 [lb_av] MEDEN T ([facility]) Body height 74 [in_i] 74 [in_i] [facility] ([facility]) 6'2" Diastolic blood pressure 78 mm[Hg] 78 mm[Hg] [facility] ([facility]) Systolic blood pressure 116 mm[Hg] 116 mm[Hg] [facility] ([facility]) Body surface area Derived from formula 2.30 m2 2.30 m2 [facility] ([facility]) Body weight 103.648 kg 103.648 kg [facility] ([facility]) [place] body weight 190 [lb_av] 190 [lb_av] MEDEN T ([facility]) Body mass index (BMI) [Ratio] 29.3 kg/m2 29.3 k g/m2 [facility] ([facility]) Body weight 228.50 [lb_av] 228.50 [lb_av] MEDEN T ([facility]) Body height 74 [in_i] 74 [in_i] [facility] ([facility]) 6'2" Heart rate 64 /min 64 /min [facility] ([facility]) Diastolic blood pressure 78 mm[Hg] 78 mm[Hg] [facility] ([facility]) Systolic blood pressure 131 mm[Hg] 131 mm[Hg] [facility] ([facility]) Oxygen saturation in Arterial blood by Pulse oximetry 95 % 95 % [facility] ([facility] Body mass index (BMI) [Ratio] 29.9 kg/m2 29.9 k g/m2 [facility] ([facility] [place] body weight 184 [lb_av] 184 [lb_av] MEDEN T ([facility] Body weight 227.00 [lb_av] 227.00 [lb_av] MEDEN T ([facility] Body height 73 [in_i] 73 [in_i] MEDENT ([facility] 6'1" Respiratory rate 12 /min 12 /min MED[facility] ( [facility] Heart rate 60 /min 60 /min MED[facility] ([facility] Body temperature 97.4 [degF] 97.4 [degF] MED[facility] ([facility] Diastolic blood pressure 74 mm[Hg] 74 mm[Hg] [facility] ([facility] Systolic blood pressure 116 mm[Hg] 116 mm[Hg] M EDENT ([facility] Oxygen saturation in Arterial blood by Pulse oximetry 98 % 98 % [facility] Body mass index (BMI) [Ratio] 29.27 kg/m2 29.27 kg/m2 [facility] Body weight 103.42 kg 103.42 kg [facility] Body height 188 cm 188 cm [facility] Heart rate 67 /min 67 /min [facility] Diastolic blood pressure 60 mm[Hg] 60 mm[Hg] [facility] Systolic blood pressure 100 mm[Hg] 100 mm[Hg] [facility] Oxygen saturation in Arterial blood by Pulse oximetry 95 % 95 % MEDENT ([facility] Body mass index (BMI) [Ratio] 29.2 kg/m2 29.2 k g/m2 MEDENT ([facility] [place] body weight 184 [lb_av] 184 [lb_av] MEDEN T ([facility] Body weight 221.00 [lb_av] 221.00 [lb_av] MEDEN T ([facility] Body height 73 [in_i] 73 [in_i] MEDANIRUDH ([facility] 6'1" Respiratory rate 14 /min 14 /min RAYMON ( [facility] Heart rate 62 /min 62 /min RAYMON ([facility] Body temperature 97.4 [degF] 97.4 [degF] RAYMON ([facility] Diastolic blood pressure 78 mm[Hg] 78 mm[Hg] RAYMON ([facility] Systolic blood pressure 124 mm[Hg] 124 mm[Hg] Hal REED ([facility]
[2020-06-07] MEDS ORDERED: BUPIVACAINE/EPIN 0.25% 30 ML VIAL As Ordered ONE (09:52)
[2020-06-07] MEDS ORDERED: propofoL 200 MG/20 ML VIAL As Ordered ONE (10:13)
[2020-06-07] MEDS ORDERED: fentaNYL 100 MCG/2 ML INJECTION (J3010) As Ordered ONE (10:13)
[2020-06-07] MEDS ORDERED: METOCLOPRAMIDE INJ 10MG/2ML VIAL (J2765 PER 1) As Ordered ONE (10:13)
[2020-06-07] MEDS ORDERED: MIDAZOLAM INJ 2MG/2ML VIAL (J2250 PER 1MG) As Ordered ONE (10:13)
[2020-06-07] MEDS ORDERED: ONDANSETRON 4MG/2ML VIAL As Ordered ONE (10:13)
[2020-06-07] MEDS ORDERED: dexameTHASONE 4 MG/ML 1ML VIAL (J1100 PER 1MG) As Ordered ONE (10:13)
[2020-06-07] MEDS ORDERED: KETOROLAC 60MG 2ML VIAL As Ordered ONE (10:13)
[2020-06-07] MEDS ORDERED: ACETAMINOPHEN 1000MG 100ML IV BTL (OFIRMEV) (J0131 PER 10MG) As Ordered ONE (10:15)
[2020-06-07] MEDS ORDERED: traMADol 50 MG TAB PO PRN (11:15)
[2020-06-07] MEDS ORDERED: LR 1,000 ML IV SCH (11:15)
[2020-06-07] MEDS ORDERED: NS 1,000 ML IV SCH (11:15)
[2020-06-07] MEDS ORDERED: fentaNYL 100 MCG/2 ML INJECTION (J3010) IV PRN (11:15)
[2020-06-07] MEDS ORDERED: PERCOCET 5MG/325MG TAB PO PRN (11:15)
[2020-06-07] MEDS ORDERED: ONDANSETRON 4MG/2ML VIAL IV PRN (11:15)
[2020-06-07] MEDS ORDERED: METOCLOPRAMIDE INJ 10MG/2ML VIAL (J2765 PER 1) IV PRN (11:15)
--- NOTE | 2020-06-07 11:18 | RO ---
OPERATIVE NOTE DATE OF OPERATION: 06/07/2020 PREOPERATIVE DIAGNOSIS: Left scrotal lipoma. POSTOPERATIVE DIAGNOSIS: Left scrotal lipoma, left subcutaneous mass (scrotum 12 cm x 9 cm). PROCEDURE: Excision of large left scrotal lipoma. SURGEON: Manjit Bailey MD ENVIRONMENTAL SERVICES SUPERVISOR: ANESTHESIA: General. EBL: Minimal. FLUIDS: Crystalloid. DESCRIPTION OF PROCEDURE: The patient was brought to the operating room and given general anesthesia. After adequate anesthesia preoperative antibiotics were given, the patient was prepped and draped in usual sterile fashion. A longitudinal incision over the lipoma was made with skin knife. Electrocautery was used to cut through dermis and underlying subcutaneous tissue. Lipoma came right up to the surface and was able to be mobilized mostly bluntly until encountering its attachment distally and that was a small vessel that was clamped and ligated with 2-0 Vicryl suture. The rest of the area was treated with electrocautery for hemostasis. There were no other attachments and the lipoma was able to be removed by blunt dissection mostly. The area was copiously irrigated until clear. 3-0 Vicryl was used to approximate dermis, 4-0 Vicryl was used to approximate skin. Dermabond was used to cover the incision and dry, sterile dressing was applied. The patient was awakened from anesthesia, extubated and brought to recovery room awake, alert, and hemodynamically stable. Sponge and needle counts correct x2.
[2020-06-07] MEDS ORDERED: LIDOCAINE 2% 100MG/5ML SDV (FOR ANES.) As Ordered ONE (11:20)
[2020-06-07 12:03] VITALS: BP 132/83
== END 2020-06-07 12:30 | disposition home or self-care (01) ==
LOC: M SDC 07:29
PROVIDERS: ATTEND Surgery
DX: D17.9 Benign lipomatous neoplasm, unspecified (principal); Z79.82 Long term (current) use of aspirin; R06.83 Snoring
CPT/HCPCS: 11426; 88304; J0131; J0690; J1100; J1885; J2250; J2405; J2765; J3010

== ENCOUNTER → 2020-08-21 | Outpatient (CLI) | payer MEDICARE, BC, OTHER ==
[~2020-08-21] MED LIST changes: -LR 1,000 ML IV ONE; -ceFAZolin SOD 1 GM in D5W MINI-BAG PLUS 50 ML IV ONE
== END ==
LOC: M LABSMTC 08:30
PROVIDERS: ATTEND Anesthesiology
DX: Z01.812 Encounter for preprocedural laboratory examination (principal); Z11.52 Encounter for screening for COVID-19

== ENCOUNTER 2020-08-26 09:11 | Day surgery (SDC) | payer MEDICARE, BC, OTHER ==
[~2020-08-26] VITALS: Ht 188 cm; Wt 100.9 kg
[~2020-08-26 09:11] MED LIST changes: +NS 1,000 ML IV ONE
[2020-08-26] MEDS ORDERED: LIDOCAINE 2% MDV 20ML VIAL As Ordered ONE (10:06)
[2020-08-26] MEDS ORDERED: propofoL 200 MG/20 ML VIAL As Ordered ONE ×2 (10:06→10:29)
--- NOTE | 2020-08-26 10:35 | ROOR ---
Patient Name: Chi Miranda Procedure Date: 08/26/2020 10:16 AM Date of : 1955 Age: 64 Room: [facility] Gender: Male Note Status: Finalized Procedure: Colonoscopy Indications: High risk colon cancer surveillance: Personal history of colonic polyps Providers: Karlos Andre MD Referring MD: DAPHNE PEDRAZA MD Requesting Provider: Medicines: Monitored Anesthesia Care Complications: No immediate complications. Procedure: Pre-Anesthesia Assessment: - The heart rate, respiratory rate, oxygen saturations, blood pressure, adequacy of pulmonary ventilation, and response to care were monitored throughout the procedure. The Colonoscope was introduced through the anus and advanced to the terminal ileum, with identification of the appendiceal orifice and IC valve. The colonoscopy was performed without difficulty. The patient tolerated the procedure well. The quality of the bowel preparation was good. Findings: The perianal and digital rectal examinations were normal. Small Internal Hemorrhoids. The entire examined colon appeared normal on direct and retroflexion views. Impression: - Small Internal Hemorrhoids. - The entire examined colon is normal on direct and retroflexion views. - No specimens collected. Recommendation: - Repeat colonoscopy in 5 years for surveillance. Procedure Code(s): --- Professional --- 79545, Colonoscopy, flexible; diagnostic, including collection of specimen(s) by brushing or washing, when performed (separate procedure) Diagnosis Code(s): --- Professional --- Z86.010, Personal history of colonic polyps CPT copyright 2019 [employer]. All rights reserved. The codes documented in this report are preliminary and upon physician coder review may be revised to meet current compliance requirements. Karlos Andre MD Karlos Andre MD 08/26/2020 10:35:38 AM Electronically signed by Karlos Andre MD Number of Addenda: 0 Note Initiated On: 08/26/2020 10:16 AM Estimated Blood Loss: Estimated blood loss: none.
[2020-08-26 10:55] VITALS: BP 102/59
== END 2020-08-26 11:00 | disposition home or self-care (01) ==
LOC: M OPP 09:11
PROVIDERS: ATTEND Internal Medicine Gastroenterology
DX: Z12.11 Encounter for screening for malignant neoplasm of colon (principal); Z86.010 Personal history of colon polyps; K64.8 Other hemorrhoids; K21.9 Gastro-esophageal reflux disease without esophagitis; R06.83 Snoring; Z79.82 Long term (current) use of aspirin

== ENCOUNTER → 2022-03-28 | Outpatient (CLI) | payer MEDICARE, BC, OTHER ==
[~2022-03-28] MED LIST changes: -NS 1,000 ML IV ONE
[2022-03-28 13:17] LABS: ALBUMIN 3.7 G/DL (3.2-5.2); ALKALINE PHOSPHATASE 54 U/L (46-116); ALT/SGPT 33 U/L (7.0-40); AST/SGOT 21 U/L (<34); BILIRUBIN,TOTAL 0.4 MG/DL (0.3-1.2); BLOOD UREA NITROGEN 19 MG/DL (9-23); CALCIUM LEVEL 8.5 MG/DL (8.3-10.6); CARBON DIOXIDE LEVEL 26 MMOL/L (20-31); CHLORIDE LEVEL 109 MMOL/L (98-107); CHOLESTEROL LEVEL 205 MG/DL (<200); CHOLESTEROL RISK RATIO 4.32 (<5); GLOMERULAR FILTRATION RATE > 60.0 (>49); GLUCOSE, FASTING 105 MG/DL (74-106); HDL CHOLESTEROL 47.4 MG/DL (>40); LDL CHOLESTEROL 139.6 MG/DL (<100); NON-HDL-C 158 MG/DL; POTASSIUM SERUM 4.7 MMOL/L (3.5-5.1); SODIUM LEVEL 142 MMOL/L (136-145); TOTAL PROTEIN 6.7 G/DL (5.7-8.2); TRIGLYCERIDES LEVEL 90 MG/DL (<150)
== END ==
LOC: M WUC 10:14
PROVIDERS: ATTEND Internal Medicine
DX: E78.2 Mixed hyperlipidemia (principal)

== ENCOUNTER 2022-04-18 12:18 | Day surgery (SDC) | payer MEDICARE, BC, OTHER ==
[~2022-04-18] VITALS: Ht 188 cm; Wt 102.3 kg
[2022-04-18] MEDS ORDERED: LIDOCAINE 2% MDV 20ML VIAL As Ordered ONE (13:19)
[2022-04-18] MEDS ORDERED: BOOSTRIX/ADACEL VACCINE (DIPHTH/PERTUSS/ACELL/TETANUS) 0.5ML SYR IM.IMMUN ONE (13:20)
[2022-04-18] MEDS ORDERED: LIDOCAINE 2% MDV 20ML VIAL SC ONE (13:20)
[2022-04-18] MEDS ORDERED: ceFAZolin SOD 2 GM in IV 1 EA IV ONE (13:35)
[2022-04-18 13:52] LABS: BASO % 0.5 % (0.0-1.0); EOS # 0.1 10^3/uL (0.0-0.5); EOS % 0.9 % (0.0-3.0); HEMATOCRIT 43.3 % (42.0-52.0); HEMOGLOBIN 14.9 g/dl (13.5-17.5); LYMPH % 12.6 % (24.0-44.0); MEAN CORPUSCULAR HEMOGLOBIN 30.8 pg (27.0-33.0); MEAN CORPUSCULAR HGB CONC 34.4 g/dl (32.0-36.5); MEAN CORPUSCULAR VOLUME 89.6 fl (80.0-96.0); MONO # 0.5 10^3/uL (0.0-0.8); MONO % 5.9 % (2.0-8.0); NEUTROPHILS # 6.1 10^3/uL (1.5-8.5); NEUTROPHILS % 79.8 % (36.0-66.0); PLATELET COUNT, AUTOMATED 197 10^3/uL (150-450); RED BLOOD COUNT 4.83 10^6/uL (4.30-6.10); WHITE BLOOD COUNT 7.7 10^3/uL (4.0-10.0)
[2022-04-18 14:30] LABS: BLOOD UREA NITROGEN 20 MG/DL (9-23); CALCIUM LEVEL 8.8 MG/DL (8.3-10.6); CARBON DIOXIDE LEVEL 24 MMOL/L (20-31); CHLORIDE LEVEL 103 MMOL/L (98-107); CREATININE FOR GFR 0.78 MG/DL (0.70-1.30); GLOMERULAR FILTRATION RATE > 60.0 (>49); GLUCOSE, FASTING 120 MG/DL (74-106); POTASSIUM SERUM 4.2 MMOL/L (3.5-5.1); SODIUM LEVEL 138 MMOL/L (136-145)
[2022-04-18 14:34] LABS: RSV AMPLIFICATION NEGATIVE (NEGATIVE)
[2022-04-18] MEDS ORDERED: KETOROLAC 60MG 2ML VIAL As Ordered ONE (17:17)
[2022-04-18] MEDS ORDERED: LIDOCAINE 2% 100MG/5ML SDV (FOR ANES.) As Ordered ONE (17:17)
[2022-04-18] MEDS ORDERED: propofoL 200 MG/20 ML VIAL As Ordered ONE (17:17)
[2022-04-18] MEDS ORDERED: fentaNYL 100 MCG/2 ML INJECTION As Ordered ONE (17:17)
[2022-04-18] MEDS ORDERED: ONDANSETRON 4MG 2ML VIAL As Ordered ONE (17:17)
[2022-04-18] MEDS ORDERED: MIDAZOLAM INJ 2MG/2ML VIAL As Ordered ONE (17:18)
[2022-04-18] MEDS ORDERED: BUPIVACAINE HCL 0.5% 30ML VIAL As Ordered ONE (17:23)
[2022-04-18] MEDS ORDERED: ROCURONIUM BROMIDE 50MG/5ML VIAL As Ordered ONE (17:31)
[2022-04-18] MEDS ORDERED: ceFAZolin 1GM VIAL As Ordered ONE (17:40)
[2022-04-18] MEDS ORDERED: BACITRACIN OINTMENT 30GM TUBE As Ordered ONE (18:32)
[2022-04-18] MEDS ORDERED: METOCLOPRAMIDE INJ 10MG/2ML VIAL IV PRN (18:50)
[2022-04-18] MEDS ORDERED: LR 1,000 ML IV SCH (18:50)
[2022-04-18] MEDS ORDERED: ONDANSETRON 4MG 2ML VIAL IV PRN (18:50)
[2022-04-18] MEDS ORDERED: MORPHINE 2 MG/ML 1ML VIAL IV PRN (18:50)
[2022-04-18] MEDS ORDERED: fentaNYL 100 MCG/2 ML INJECTION IV PRN (18:50)
[2022-04-18] MEDS: oxyCODONE 5MG TAB PO PRN ×2 (19:15→19:55)
[2022-04-18] MEDS ORDERED: BACT400T PO (19:30)
[2022-04-18] MEDS ORDERED: OXYC-517 PO (19:30)
[2022-04-18 21:05] VITALS: BP 129/68
== END 2022-04-18 21:07 | disposition home or self-care (01) ==
LOC: M ED 12:18 → M SDC 16:58
PROVIDERS: ATTEND Orthopaedic Surgery
DX: S62.634B Displaced fracture of distal phalanx of right ring finger, initial encounter for open fracture (principal); S61.314A Laceration without foreign body of right ring finger with damage to nail, initial encounter; S61.212A Laceration without foreign body of right middle finger without damage to nail, initial encounter; S66.122A Laceration of flexor muscle, fascia and tendon of right middle finger at wrist and hand level, initial encounter; S64.01XA Injury of ulnar nerve at wrist and hand level of right arm, initial encounter; W31.2XXA Contact with powered woodworking and forming machines, initial encounter; Y92.098 Other place in other non-institutional residence as the place of occurrence of the external cause; K21.9 Gastro-esophageal reflux disease without esophagitis; Z79.82 Long term (current) use of aspirin; Z23 Encounter for immunization
CPT/HCPCS: 11760; 26370; 26765; 64831; 73140; 80048; 85025; 86850; 86900; 86901; 87631; 90471; 90715; 96365; 96366; 99284; J1100; J2405

== ENCOUNTER → 2022-04-24 | Outpatient (CLI) | payer MEDICARE, BC, OTHER ==
[~2022-04-24] MED LIST changes: +BACT400T PO; +OXYC-517 PO
== END ==
LOC: M SOG 08:44
PROVIDERS: ATTEND Orthopaedic Surgery
DX: M79.641 Pain in right hand (principal); Z98.890 Other specified postprocedural states

== ENCOUNTER → 2022-05-15 | Outpatient (CLI) | payer MEDICARE, BC, OTHER | LOC: M WHC 12:24 | PROVIDERS: ATTEND Internal Medicine | DX: I82.401 Acute embolism and thrombosis of unspecified deep veins of right lower extremity (principal); M79.661 Pain in right lower leg ==

== ENCOUNTER → 2022-05-15 | Outpatient (RCR) | payer MEDICARE, BC, OTHER | LOC: M OT 05-08 08:00 | PROVIDERS: ATTEND Orthopaedic Surgery | DX: S69.81XD Other specified injuries of right wrist, hand and finger(s), subsequent encounter (principal) ==

== ENCOUNTER → 2022-05-31 | Outpatient (CLI) | payer MEDICARE, BC, OTHER | LOC: M SOG 07:59 | PROVIDERS: ATTEND Orthopaedic Surgery Hand Surgery | DX: S62.634D Displaced fracture of distal phalanx of right ring finger, subsequent encounter for fracture with routine healing (principal) ==

== ENCOUNTER 2022-06-08 08:07 | Outpatient (RCR) | payer MEDICARE, BC, OTHER | END 2022-06-12 | LOC: M OT 08:07 | PROVIDERS: ATTEND Orthopaedic Surgery | DX: S69.81XD Other specified injuries of right wrist, hand and finger(s), subsequent encounter (principal) ==

== ENCOUNTER → 2022-06-14 | Outpatient (CLI) | payer MEDICARE, BC, OTHER | LOC: M SOG 14:43 | PROVIDERS: ATTEND Physician Assistant | DX: S62.634D Displaced fracture of distal phalanx of right ring finger, subsequent encounter for fracture with routine healing (principal) ==

== ENCOUNTER → 2022-06-15 | Outpatient (CLI) | payer MEDICARE, BC, OTHER | LOC: M WUC 09:39 | PROVIDERS: ATTEND Orthopaedic Surgery Hand Surgery | DX: S62.634D Displaced fracture of distal phalanx of right ring finger, subsequent encounter for fracture with routine healing (principal); Z79.899 Other long term (current) drug therapy ==

== ENCOUNTER 2022-07-06 08:12 | Outpatient (RCR) | payer MEDICARE, BC, OTHER | END 2022-07-13 | LOC: M OT 08:12 | PROVIDERS: ATTEND Orthopaedic Surgery | DX: S69.81XD Other specified injuries of right wrist, hand and finger(s), subsequent encounter (principal) ==

== ENCOUNTER → 2022-07-17 | Outpatient (CLI) | payer MEDICARE, BC, OTHER | LOC: M SOG 07:54 | PROVIDERS: ATTEND Physician Assistant | DX: S68.624D Partial traumatic transphalangeal amputation of right ring finger, subsequent encounter (principal); S66.122D Laceration of flexor muscle, fascia and tendon of right middle finger at wrist and hand level, subsequent encounter ==

== ENCOUNTER 2022-08-09 08:08 | Outpatient (RCR) | payer MEDICARE, BC, OTHER | END 2022-08-12 | LOC: M OT 08:08 | PROVIDERS: ATTEND Orthopaedic Surgery | DX: S69.81XD Other specified injuries of right wrist, hand and finger(s), subsequent encounter (principal) ==

== ENCOUNTER → 2022-08-21 | Outpatient (CLI) | payer MEDICARE, BC, OTHER | LOC: M SOG 07:55 | PROVIDERS: ATTEND Orthopaedic Surgery Hand Surgery | DX: S62.624D Displaced fracture of middle phalanx of right ring finger, subsequent encounter for fracture with routine healing (principal); W18.30XD Fall on same level, unspecified, subsequent encounter; Y92.009 Unspecified place in unspecified non-institutional (private) residence as the place of occurrence of the external cause ==

== ENCOUNTER 2022-09-06 08:10 | Outpatient (RCR) | payer MEDICARE, BC, OTHER | END 2022-09-12 | LOC: M OT 08:10 | PROVIDERS: ATTEND Orthopaedic Surgery | DX: S69.81XD Other specified injuries of right wrist, hand and finger(s), subsequent encounter (principal) ==

== ENCOUNTER → 2022-09-20 | Outpatient (CLI) | payer MEDICARE, BC, OTHER | LOC: M SOG 07:51 | PROVIDERS: ATTEND Physician Assistant | DX: S68.624D Partial traumatic transphalangeal amputation of right ring finger, subsequent encounter (principal) ==

== ENCOUNTER → 2022-11-08 | Outpatient (CLI) | payer MEDICARE, BC, OTHER | LOC: M SOG 16:15 | PROVIDERS: ATTEND Orthopaedic Surgery Hand Surgery | DX: S68.624D Partial traumatic transphalangeal amputation of right ring finger, subsequent encounter (principal) ==

== ENCOUNTER 2022-11-28 06:04 | Day surgery (SDC) | payer MEDICARE, BC, OTHER ==
[~2022-11-28] VITALS: Ht 188 cm; Wt 108.9 kg
[~2022-11-28 06:04] MED LIST changes: +CEPH500C PO; +LIDOCAINE W/EPINEPHRINE 1% 20ML VIAL XX ONE; +SODIUM BICARBONATE 8.4% INJ 50MEQ 50ML VIAL XX ONE
[2022-11-28] MEDS ORDERED: VITAD400CA FT (06:32)
[2022-11-28] MEDS ORDERED: BACITRACIN OINTMENT 30GM TUBE As Ordered ONE (07:09)
[2022-11-28] MEDS ORDERED: LIDOCAINE 1% MDV 20ML VIAL SC ONE (08:00)
[2022-11-28 08:15] VITALS: BP 157/78; TEMP 97.5; O2SAT 95
[2022-11-28] MEDS ORDERED: PERC5TAB12 PO (08:25)
== END 2022-11-28 08:35 | disposition home or self-care (01) ==
LOC: M SDC 06:04
PROVIDERS: ATTEND Orthopaedic Surgery Hand Surgery
DX: S68.624D Partial traumatic transphalangeal amputation of right ring finger, subsequent encounter (principal); X58.XXXD Exposure to other specified factors, subsequent encounter

== ENCOUNTER → 2022-12-07 | Outpatient (CLI) | payer MEDICARE, BC, OTHER ==
[~2022-12-07] MED LIST changes: -LIDOCAINE W/EPINEPHRINE 1% 20ML VIAL XX ONE; +PERC5TAB12 PO; -SODIUM BICARBONATE 8.4% INJ 50MEQ 50ML VIAL XX ONE; +VITAD400CA FT
== END ==
LOC: M SOG 08:20
PROVIDERS: ATTEND Physician Assistant
DX: S68.624D Partial traumatic transphalangeal amputation of right ring finger, subsequent encounter (principal); Y93.9 Activity, unspecified; Y92.9 Unspecified place or not applicable

== ENCOUNTER → 2023-01-18 | Outpatient (CLI) | payer MEDICARE, BC, OTHER | LOC: M WHC 12:13 | PROVIDERS: ATTEND Internal Medicine | DX: R60.9 Edema, unspecified (principal) ==

== ENCOUNTER 2023-03-13 10:34 | Emergency (ER) | payer MEDICARE, BC, OTHER ==
[~2023-03-13] VITALS: Ht 188 cm; Wt 107.1 kg
[2023-03-13 11:34] LABS: BASO % 0.6 % (0.0-1.0); EOS # 0.1 10^3/uL (0.0-0.5); EOS % 1.5 % (0.0-3.0); HEMATOCRIT 43.7 % (42.0-52.0); HEMOGLOBIN 15.6 g/dl (13.5-17.5); LYMPH # 0.9 10^3/uL (1.5-5.0); LYMPH % 19.3 % (24.0-44.0); MEAN CORPUSCULAR HEMOGLOBIN 31.4 pg (27.0-33.0); MEAN CORPUSCULAR HGB CONC 35.7 g/dl (32.0-36.5); MEAN CORPUSCULAR VOLUME 87.9 fl (80.0-96.0); MONO # 0.5 10^3/uL (0.0-0.8); MONO % 9.5 % (2.0-8.0); NEUTROPHILS # 3.3 10^3/uL (1.5-8.5); NEUTROPHILS % 68.9 % (36.0-66.0); PLATELET COUNT, AUTOMATED 214 10^3/uL (150-450); RED BLOOD COUNT 4.97 10^6/uL (4.30-6.10); WHITE BLOOD COUNT 4.7 10^3/uL (4.0-10.0)
[2023-03-13 11:57] LABS: BLOOD UREA NITROGEN 17 MG/DL (9-23); CALCIUM LEVEL 8.8 MG/DL (8.3-10.6); CARBON DIOXIDE LEVEL 23 MMOL/L (20-31); CHLORIDE LEVEL 108 MMOL/L (98-107); CK-MB VALUE MASS 3.2 NG/ML (<3.6); CREATININE FOR GFR 0.79 MG/DL (0.70-1.30); GLOMERULAR FILTRATION RATE > 60.0 (>49); GLUCOSE, FASTING 109 MG/DL (74-106); POTASSIUM SERUM 4.3 MMOL/L (3.5-5.1); SODIUM LEVEL 139 MMOL/L (136-145)
[2023-03-13 11:59] LABS: FREE T4 1.01 NG/DL (0.89-1.76)
[2023-03-13] MEDS ORDERED: ISOVUE-370 76% 100ML VIAL As Ordered ONE (12:04)
[2023-03-13 12:35] LABS: CPK CREATINE PHOSPHOKINASE 288 U/L (46-171); MB/CK RELATIVE INDEX 1.11 (< OR =4)
[2023-03-13 12:48] LABS: INR 1.05; PROTHROMBIN TIME 13.4 SECONDS (12.5-14.5)
[2023-03-13 12:49] LABS: PARTIAL THROMBOPLASTIN TIME 24.9 SECONDS (24.8-34.2)
[2023-03-13 12:57] LABS: CK-MB VALUE MASS 2.5 NG/ML (<3.6)
[2023-03-13 12:58] LABS: MB/CK RELATIVE INDEX 0.93 (< OR =4)
[2023-03-13 14:04] LABS: MAGNESIUM LEVEL 2.3 MG/DL (1.8-2.4)
[2023-03-13] MEDS ORDERED: RIVAROXABAN 20MG TAB (XARELTO) PO ONE (15:15)
[2023-03-13] MEDS ORDERED: XARE15TA PO (15:55)
[2023-03-13] MEDS ORDERED: XARE20TA PO (15:55)
[2023-03-13 16:19] VITALS: BP 127/73; TEMP 97.1; O2SAT 96
[2023-03-18 14:09] LABS: ANTI THROMBIN 3 ANTIGEN IMMUNO 90 % (72-124); ANTI THROMBIN 3 FUNCT ACTIVITY 99 % (75-135); CARDIOLIPIN IGA ANTIBODY <9 APL U/mL (0-11); CARDIOLIPIN IGG ANTIBODY <9 GPL U/mL (0-14); CARDIOLIPIN IGM ANTIBODY <9 MPL U/mL (0-12); PHOSPHOLIPIDS LEVEL 219 mg/dL (127-261); PROTEIN C FUNCTIONAL ACTIVITY 118 % (73-180); PROTEIN S FUNCTIONAL ACTIVITY 78 % (63-140)
== END 2023-03-13 16:22 | disposition home or self-care (01) ==
LOC: M ED 10:34
DX: I48.91 Unspecified atrial fibrillation (principal); I82.501 Chronic embolism and thrombosis of unspecified deep veins of right lower extremity; Z79.82 Long term (current) use of aspirin; Z79.899 Other long term (current) drug therapy
CPT/HCPCS: 36415; 71045; 71275; 80048; 81240; 81241; 82550; 82553; 83735; 84311; 84439; 84443; 84484; 85025; 85300; 85301; 85303; 85305; 85610; 85730; 86147; 93005; 93041; 94760; 99285; Q9967

== ENCOUNTER → 2023-06-13 | Outpatient (CLI) | payer MEDICARE, BC, OTHER ==
[~2023-06-13] MED LIST changes: +XARE15TA PO; +XARE20TA PO
== END ==
LOC: M SOG 14:12
PROVIDERS: ATTEND Physician Assistant
DX: S68.624D Partial traumatic transphalangeal amputation of right ring finger, subsequent encounter (principal); Y92.9 Unspecified place or not applicable; Y93.9 Activity, unspecified; Y99.9 Unspecified external cause status; X58.XXXA Exposure to other specified factors, initial encounter

== ENCOUNTER 2023-08-20 05:14 | Emergency (ER) | payer MEDICARE, BC ==
[~2023-08-20] VITALS: Ht 188 cm; Wt 107.1 kg
[2023-08-20 05:53] LABS: BASO % 0.8 % (0.0-1.0); EOS # 0.1 10^3/uL (0.0-0.5); HEMATOCRIT 43.3 % (42.0-52.0); HEMOGLOBIN 14.9 g/dl (13.5-17.5); LYMPH # 0.8 10^3/uL (1.5-5.0); LYMPH % 16.1 % (24.0-44.0); MEAN CORPUSCULAR HEMOGLOBIN 30.1 pg (27.0-33.0); MEAN CORPUSCULAR HGB CONC 34.4 g/dl (32.0-36.5); MEAN CORPUSCULAR VOLUME 87.5 fl (80.0-96.0); MONO # 0.5 10^3/uL (0.0-0.8); MONO % 9.4 % (2.0-8.0); NEUTROPHILS # 3.7 10^3/uL (1.5-8.5); NEUTROPHILS % 71.5 % (36.0-66.0); PLATELET COUNT, AUTOMATED 192 10^3/uL (150-450); RED BLOOD COUNT 4.95 10^6/uL (4.30-6.10); WHITE BLOOD COUNT 5.1 10^3/uL (4.0-10.0)
[2023-08-20 06:06] LABS: INR 1.34; PROTHROMBIN TIME 16.1 SECONDS (12.5-14.5)
[2023-08-20 06:27] LABS: ALBUMIN 3.2 G/DL (3.2-5.2); ALKALINE PHOSPHATASE 59 U/L (46-116); ALT/SGPT 102 U/L (7.0-40); AST/SGOT 138 U/L (<34); BILIRUBIN,DIRECT 0.3 MG/DL (<0.4); BILIRUBIN,TOTAL 0.8 MG/DL (0.3-1.2); BLOOD UREA NITROGEN 14 MG/DL (9-23); CALCIUM LEVEL 7.9 MG/DL (8.3-10.6); CARBON DIOXIDE LEVEL 22 MMOL/L (20-31); CHLORIDE LEVEL 111 MMOL/L (98-107); CK-MB VALUE MASS 3.5 NG/ML (<3.6); CPK CREATINE PHOSPHOKINASE 283 U/L (46-171); GLOMERULAR FILTRATION RATE > 60.0 (>49); GLUCOSE, FASTING 135 MG/DL (74-106); LIPASE 31 U/L (12-53); MB/CK RELATIVE INDEX 1.23 (< OR =4); POTASSIUM SERUM 4.6 MMOL/L (3.5-5.1); SODIUM LEVEL 142 MMOL/L (136-145); TOTAL PROTEIN 6.1 G/DL (5.7-8.2)
[2023-08-20] MEDS ORDERED: XARE20TA PO (07:43)
[2023-08-20] MEDS ORDERED: HOME MED LIST COMPLETE! XX SCH (07:45)
[2023-08-20] MEDS ORDERED: ISOVUE-370 76% 100ML VIAL As Ordered ONE (07:52)
[2023-08-20 08:39] LABS: CK-MB VALUE MASS 3.1 NG/ML (<3.6)
[2023-08-20 08:41] LABS: MB/CK RELATIVE INDEX 1.21 (< OR =4)
[2023-08-20 10:45] VITALS: BP 135/72; TEMP 97.3; O2SAT 97
== END 2023-08-20 11:00 | disposition home or self-care (01) ==
LOC: M ED 05:14
DX: K80.50 Calculus of bile duct without cholangitis or cholecystitis without obstruction (principal); R94.5 Abnormal results of liver function studies; I48.91 Unspecified atrial fibrillation; Z79.899 Other long term (current) drug therapy
CPT/HCPCS: 36415; 71045; 71275; 74177; 76705; 80048; 80076; 82550; 82553; 83690; 84484; 85025; 85610; 93005; 99284; Q9967

== ENCOUNTER → 2023-08-22 | Outpatient (CLI) | payer MEDICARE, BC ==
[2023-08-22 12:49] LABS: EOS # 0.2 10^3/uL (0.0-0.5); EOS % 6.2 % (0.0-3.0); HEMATOCRIT 47.3 % (42.0-52.0); MEAN CORPUSCULAR HEMOGLOBIN 29.9 pg (27.0-33.0); MEAN CORPUSCULAR HGB CONC 33.8 g/dl (32.0-36.5); MEAN CORPUSCULAR VOLUME 88.2 fl (80.0-96.0); MONO # 0.4 10^3/uL (0.0-0.8); MONO % 11.4 % (2.0-8.0); NEUTROPHILS # 2.1 10^3/uL (1.5-8.5); NEUTROPHILS % 54.4 % (36.0-66.0); PLATELET COUNT, AUTOMATED 207 10^3/uL (150-450); RED BLOOD COUNT 5.36 10^6/uL (4.30-6.10); WHITE BLOOD COUNT 3.9 10^3/uL (4.0-10.0)
[2023-08-22 12:55] LABS: C REACTIVE PROTEIN QUANTITATIV < 0.40 MG/DL (<1.0)
[2023-08-22 13:13] LABS: HEMOGLOBIN A1c 5.5 % (4.0-6.0)
[2023-08-22 13:14] LABS: ALBUMIN 3.8 G/DL (3.2-5.2); ALKALINE PHOSPHATASE 95 U/L (46-116); ALT/SGPT 295 U/L (7.0-40); AST/SGOT 79 U/L (<34); BILIRUBIN,TOTAL 0.6 MG/DL (0.3-1.2); BLOOD UREA NITROGEN 15 MG/DL (9-23); CALCIUM LEVEL 9.2 MG/DL (8.3-10.6); CARBON DIOXIDE LEVEL 27 MMOL/L (20-31); CHLORIDE LEVEL 108 MMOL/L (98-107); CHOLESTEROL LEVEL 184 MG/DL (<200); CHOLESTEROL RISK RATIO 3.73 (<5); CREATININE FOR GFR 0.86 MG/DL (0.70-1.30); FREE T4 0.94 NG/DL (0.89-1.76); GLOMERULAR FILTRATION RATE > 60.0 (>49); GLUCOSE, FASTING 100 MG/DL (74-106); HDL CHOLESTEROL 49.3 MG/DL (>40); LDL CHOLESTEROL 114.3 MG/DL (<100); NON-HDL-C 134.7 MG/DL; POTASSIUM SERUM 4.7 MMOL/L (3.5-5.1); PSA SCREENING 1.18 NG/ML (< 4.00); SODIUM LEVEL 141 MMOL/L (136-145); THYROID STIMULATING HORMONE 1.277 uIU/ML (0.55-4.78); TOTAL 25(OH) VITAMIN D 29.2 NG/ML (20.0-100.0); TOTAL PROTEIN 6.6 G/DL (5.7-8.2); TRIGLYCERIDES LEVEL 102 MG/DL (<150); VITAMIN B12 LEVEL 391 PG/ML (211-911)
== END ==
LOC: M PLALAB 09:13
PROVIDERS: ATTEND Internal Medicine Hematology
DX: Z00.00 Encounter for general adult medical examination without abnormal findings (principal); I82.90 Acute embolism and thrombosis of unspecified vein; Z12.5 Encounter for screening for malignant neoplasm of prostate; Z79.899 Other long term (current) drug therapy
CPT/HCPCS: 36415; 80053; 80061; 82306; 82607; 83036; 83525; 84439; 84443; 85025; 85379; 86140; G0103

== ENCOUNTER → 2023-08-23 | Outpatient (CLI) | payer MEDICARE, BC ==
[2023-08-23 13:09] LABS: HEPATITIS B SURFACE ANTIGEN NEGATIVE (NEGATIVE)
[2023-08-23 13:30] LABS: HEPATITIS C VIRUS ABY INDEX < 0.02 INDEX (<0.8)
[2023-08-23 13:31] LABS: HEPATITIS B CORE ANTIBODY IGM NEGATIVE (NEGATIVE)
== END ==
LOC: M RAD 11:44
PROVIDERS: ATTEND Surgery
DX: R10.84 Generalized abdominal pain (principal)

== ENCOUNTER → 2023-08-30 | Outpatient (CLI) | payer MEDICARE, BC ==
[2023-08-30 14:17] LABS: ALBUMIN 3.7 G/DL (3.2-5.2); BILIRUBIN,DIRECT 0.2 MG/DL (<0.4); BILIRUBIN,TOTAL 0.6 MG/DL (0.3-1.2); TOTAL PROTEIN 6.3 G/DL (5.7-8.2)
== END ==
LOC: M PLALAB 11:23
PROVIDERS: ATTEND Internal Medicine Hematology
DX: R79.89 Other specified abnormal findings of blood chemistry (principal)

== ENCOUNTER → 2023-11-14 | Outpatient (CLI) | payer MEDICARE, BC ==
[2023-11-14 13:56] LABS: HEPATITIS B SURFACE ANTIBODY NEGATIVE (POSITIVE)
[2023-11-15 12:33] LABS: HEPATITIS B CORE ANTIBODY IGG NON-REACTIVE (NON-REACTIVE)
[2023-11-23 11:57] LABS: ALPHA 2-MACROGLOBULINS,QN 158 mg/dL (106-279); ALT (SGPT) P5P 29 U/L (9-46); APOLIPOPROTEIN A-1 147 mg/dL (94-176); BILIRUBIN, TOTAL 0.5 mg/dL (0.2-1.2); FIBROSIS SCORE 0.22; FIBROSIS STAGE NO FIBROSIS (F0); GGT 33 U/L (3-70); HAPTOGLOBIN 161 mg/dL (43-212); NECROINFLAM ACT GRADE NO ACTIVITY (A0); NECROINFLAM ACT SCORE 0.13
== END ==
LOC: M PLALAB 09:50
PROVIDERS: ATTEND Internal Medicine Infectious Disease
DX: R79.89 Other specified abnormal findings of blood chemistry (principal); K80.20 Calculus of gallbladder without cholecystitis without obstruction; Z11.59 Encounter for screening for other viral diseases

== ENCOUNTER → 2024-02-26 | Outpatient (CLI) | payer MEDICARE, BC ==
[2024-02-26 11:44] LABS: BASO # 0.1 10^3/uL (0.0-0.2); BASO % 1.2 % (0.0-1.0); EOS # 0.2 10^3/uL (0.0-0.5); EOS % 3.5 % (0.0-3.0); HEMATOCRIT 46.6 % (42.0-52.0); LYMPH # 1.2 10^3/uL (1.5-5.0); LYMPH % 27.1 % (24.0-44.0); MEAN CORPUSCULAR HEMOGLOBIN 30.9 pg (27.0-33.0); MEAN CORPUSCULAR HGB CONC 34.3 g/dl (32.0-36.5); MEAN CORPUSCULAR VOLUME 90.1 fl (80.0-96.0); MONO # 0.4 10^3/uL (0.0-0.8); MONO % 9.7 % (2.0-8.0); NEUTROPHILS # 2.5 10^3/uL (1.5-8.5); NEUTROPHILS % 58.5 % (36.0-66.0); PLATELET COUNT, AUTOMATED 196 10^3/uL (150-450); RED BLOOD COUNT 5.17 10^6/uL (4.30-6.10); WHITE BLOOD COUNT 4.3 10^3/uL (4.0-10.0)
[2024-02-26 12:13] LABS: ALBUMIN 3.8 G/DL (3.2-5.2); ALKALINE PHOSPHATASE 59 U/L (40-129); ALT/SGPT 38 U/L (7.0-40); AST/SGOT 17 U/L (<34); BILIRUBIN,TOTAL 0.6 MG/DL (0.3-1.2); BLOOD UREA NITROGEN 14 MG/DL (9-23); CALCIUM LEVEL 9.3 MG/DL (8.3-10.6); CARBON DIOXIDE LEVEL 26 MMOL/L (20-31); CHLORIDE LEVEL 111 MMOL/L (98-107); CHOLESTEROL LEVEL 201 MG/DL (<200); CHOLESTEROL RISK RATIO 4.78 (<5); CREATININE FOR GFR 0.75 MG/DL (0.70-1.30); GLOMERULAR FILTRATION RATE > 60.0 (>49); GLUCOSE, FASTING 100 MG/DL (74-106); LDL CHOLESTEROL 124.8 MG/DL (<100); POTASSIUM SERUM 4.3 MMOL/L (3.5-5.1); SODIUM LEVEL 142 MMOL/L (136-145); TOTAL PROTEIN 6.7 G/DL (5.7-8.2); TRIGLYCERIDES LEVEL 171 MG/DL (<150)
== END ==
LOC: M PLALAB 08:48
DX: Z86.718 Personal history of other venous thrombosis and embolism (principal); K76.0 Fatty (change of) liver, not elsewhere classified; E78.5 Hyperlipidemia, unspecified

== ENCOUNTER → 2024-05-11 | Outpatient (CLI) | payer MEDICARE, BC | LOC: M PLAIMG 14:07 | PROVIDERS: ATTEND Student in an Organized Health Care Education/Training Program | DX: M20.012 Mallet finger of left finger(s) (principal) ==

== ENCOUNTER → 2024-05-20 | Outpatient (CLI) | payer MEDICARE, BC | LOC: M SOG 08:11 | PROVIDERS: ATTEND Physician Assistant | DX: Z53.9 Procedure and treatment not carried out, unspecified reason (principal) ==

== ENCOUNTER → 2024-07-30 | Outpatient (CLI) | payer MEDICARE, BC ==
[2024-07-30 12:30] LABS: CHOLESTEROL RISK RATIO 3.93 (<5); LDL CHOLESTEROL 119.8 MG/DL (<100)
== END ==
LOC: M PLALAB 09:09
DX: E78.5 Hyperlipidemia, unspecified (principal)

== ENCOUNTER → 2024-11-11 | Outpatient (CLI) | payer MEDICARE, BC ==
[2024-11-11 11:32] LABS: ALT/SGPT 49 U/L (7.0-40); AST/SGOT 24 U/L (<34); CALCIUM LEVEL 9.1 MG/DL (8.3-10.6); CARBON DIOXIDE LEVEL 28 MMOL/L (20-31); CHLORIDE LEVEL 106 MMOL/L (98-107); CHOLESTEROL LEVEL 203 MG/DL (<200); CHOLESTEROL RISK RATIO 4.58 (<5); CREATININE FOR GFR 0.88 MG/DL (0.70-1.30); GLOMERULAR FILTRATION RATE > 90.0 (>42); LDL CHOLESTEROL 135.3 MG/DL (<100); NON-HDL-C 158.7 MG/DL; POTASSIUM SERUM 4.3 MMOL/L (3.5-5.1); SODIUM LEVEL 143 MMOL/L (136-145); TRIGLYCERIDES LEVEL 117 MG/DL (<150)
[2024-11-11 12:10] LABS: ESTIMATED AVERAGE GLUCOSE 128.0 MG/DL (60-110)
== END ==
LOC: M PLALAB 09:14
PROVIDERS: ATTEND Family Medicine
DX: Z00.00 Encounter for general adult medical examination without abnormal findings (principal); E78.5 Hyperlipidemia, unspecified; Z79.899 Other long term (current) drug therapy

== ENCOUNTER 2025-02-13 12:45 | Emergency (ER) | payer MEDICARE, BC ==
[2025-02-13 13:14] LABS: BASO # 0.0 10^3/uL (0.0-0.2); BASO % 0.2 % (0.0-1.0); EOS # 0.0 10^3/uL (0.0-0.5); EOS % 0.4 % (0.0-3.0); LYMPH # 0.7 10^3/uL (1.5-5.0); LYMPH % 7.2 % (24.0-44.0); MONO # 0.4 10^3/uL (0.0-0.8); MONO % 4.1 % (2.0-8.0); NEUTROPHILS # 8.1 10^3/uL (1.5-8.5); NEUTROPHILS % 87.8 % (36.0-66.0); PLATELET COUNT, AUTOMATED 187 10^3/uL (150-450)
[2025-02-13 13:31] VITALS: TEMP 97.5
[2025-02-13 13:48] LABS: CALCIUM LEVEL 8.4 MG/DL (8.3-10.6); CARBON DIOXIDE LEVEL 24 MMOL/L (20-31); CHLORIDE LEVEL 104 MMOL/L (98-107); CREATININE FOR GFR 0.75 MG/DL (0.70-1.30); GLOMERULAR FILTRATION RATE > 90.0 (>42); POTASSIUM SERUM 4.1 MMOL/L (3.5-5.1); SODIUM LEVEL 138 MMOL/L (136-145)
[2025-02-13 14:47] LABS: MAGNESIUM LEVEL 1.9 MG/DL (1.8-2.4)
[2025-02-13 17:34] LABS: KETONE, URINE AUTO RFX NEGATIVE (NEGATIVE); LEUKOCYTE ESTERASE UR AUTO RFX NEGATIVE (NEGATIVE); MUCUS, URINE RFX SMALL (NEGATIVE); NITRITE, URINE AUTO RFX NEGATIVE (NEGATIVE); RBC, URINE AUTO RFX 0 /HPF (0-3); SQUAM EPITHELIAL CELL UR AURFX 0 /HPF (0-6); WBC, URINE AUTO RFX 2 /HPF (0-3)
[2025-02-13] MEDS ORDERED: MIRA3350 PO (18:12)
[2025-02-13 18:15] VITALS: BP 156/82; O2SAT 96
== END 2025-02-13 18:25 | disposition home or self-care (01) ==
LOC: EDBD 12:45 → M ED 12:45
DX: R55 Syncope and collapse (principal); K59.00 Constipation, unspecified; E78.5 Hyperlipidemia, unspecified; Z86.718 Personal history of other venous thrombosis and embolism; Z79.01 Long term (current) use of anticoagulants; Z79.899 Other long term (current) drug therapy

== ENCOUNTER → 2025-03-04 | Outpatient (CLI) | payer MEDICARE, BC ==
[~2025-03-04] MED LIST changes: +MIRA3350 PO
[2025-03-04 13:30] LABS: ALT/SGPT 48 U/L (7.0-40); AST/SGOT 27 U/L (<34); CALCIUM LEVEL 8.9 MG/DL (8.3-10.6); CARBON DIOXIDE LEVEL 27 MMOL/L (20-31); CHLORIDE LEVEL 107 MMOL/L (98-107); CHOLESTEROL LEVEL 197 MG/DL (<200); CHOLESTEROL RISK RATIO 5.03 (<5); CREATININE FOR GFR 0.82 MG/DL (0.70-1.30); GLOMERULAR FILTRATION RATE > 90.0 (>42); LDL CHOLESTEROL 136.3 MG/DL (<100); NON-HDL-C 157.9 MG/DL; POTASSIUM SERUM 4.4 MMOL/L (3.5-5.1); SODIUM LEVEL 143 MMOL/L (136-145); TRIGLYCERIDES LEVEL 108 MG/DL (<150)
== END ==
LOC: M PLALAB 09:57
PROVIDERS: ATTEND Nurse Practitioner Family
DX: E78.49 Other hyperlipidemia (principal)